=== PATIENT | female | born 1940 | race Caucasian/White ===

== ENCOUNTER 2019-10-31 01:00 | Inpatient (IN) | payer MEDICARE, SELFPAY ==
[2019-10-31] VITALS (11 sets, daily range): BP systolic 126–188; BP diastolic 69–105; PULSE 89–110; RESP 18; TEMP 36.7–37.8; O2SAT 94–96; BMI 33.2
--- NOTE | 2019-10-31 00:36 | HP.PCM_ITS ---
History of Present Illness Date of Admission: 10/31/19 Chief Complaint: mechanical fall, knee pain The patient is a 79 year old F with a past medical history of arthritis and hypertension. She was admitted as a direct admit from [facility] after she went there on 10/22/2019 with a complaint of mechanical fall and bilateral knee pain. Patient said her knee pain is gradually been getting worse to the point where she cannot ambulate well. She had fallen the day before admission and per discussion with the ED doctor at [place], she had also fallen on day of presentation. However patient denied falling on day of presentation and says she just felt too weak to get out of her chair. She states she had been scheduled to have knee surgery some years ago but this never came on. Her knee pain is gradually gotten worse. She denied any fever or chills, chest pain, shortness of breath, nausea vomiting or diarrhea. Review of symptoms otherwise negative. Imaging done in [place] showed tricompartmental osteoarthrosis worse in the left knee than right knee. Labs done also showed evidence of UTI with WBC of 13.6. Initial troponin also thought to be mildly elevated though she had no cardiac symptoms. She was started on IV ciprofloxacin and transferred to [facility] per family request as her daughter works here. Patient seen and examined on arrival to [facility]. She still complained of bilateral knee pain worse in the left knee. Review of systems otherwise negative. She has been admitted to be managed for debility due to bilateral knee pain from osteoarthritis and UTI as well as indeterminate troponins. [] Past Medical History Medical History: Medical History (Last Updated 10/31/19 @ 16:[address] Compa Jacinto MD) Arthritis M19.90 Diabetes E11.9 Hyperlipidemia E78.5 HTN (hypertension) I10 HTN (hypertension) I10 Allergies Penicillins Allergy (Verified 10/31/19 00:21) unknown Sulfa (Sulfonamide Antibiotics) Allergy (Verified 10/31/19 00:21) deathly ill sulfamethoxazole [From Bactrim] Allergy (Verified 10/31/19 00:21) deathly ill trimethoprim [From Bactrim] Allergy (Verified 10/31/19 00:21) deathly ill lisinopril Adverse Reaction (Verified 10/31/19 00:21) cough Home Medications: Ambulatory Orders Medication Instructions Recorded Atorvastatin Calcium [Lipitor] 1 tab PO DAILY 10/31/19 Cholecalciferol (VIT D3) [Vitamin 1,000 unit PO DAILY 10/31/19 D] Metformin HCl [Metformin HCl ER] 500 mg PO DAILY 10/31/19 Triamterene 75MG/Hctz 50MG 1 tab PO DAILY 10/31/19 [Maxzide] traZODone [Desyrel] 50 mg PO QHS 10/31/19 Surgical History: no surgical history Psychiatric History: No pertinent psych hx CRIMINAL JUDGE History: No pertinent CRIMINAL JUDGE history Lives: With Family Tobacco Use: Non-smoker Alcohol: None Drugs: None - *Family History Maternal History Items: No pertinent history Paternal History Items: Heart Disease Review of Systems Constitutional: Denies: Chills, Fever, Weight Change HEENT: Denies: Head Aches, Sinus Congestion, Sinus Drainage Cardiovascular: Denies: Chest Pain, Palpitations Respiratory: Denies: Cough, Shortness of Breath, Shortness of breath at rest, Sputum production Gastrointestinal: Denies: Abdominal Pain, Nausea, Vomiting Genitourinary: Denies: Dysuria Musculoskeletal: Reports: Joint Pain. Denies: Joint Tenderness Skin: Denies: Rash, Wounds Neurological: Reports: Balance problems. Denies: Focal weakness, Numbness, Tingling Psychiatric: Denies: Anxiety, Depression, Homicidal Ideations, Suicidal Ideations Hematologic/ Lymphatic: Denies: Easy Bruising, Easy Bleeding VTE Information - Inpt Only VTE Present on Admission: No VTE Pharm Prophylaxis ordered?: Yes - Physical Exam Vitals/I&O's: Weight: 187 lb 9.814 oz Body Mass Index (BMI) 33.2 General: Alert, Oriented x3, Cooperative, No apparent distress HEENT: Atraumatic, PERRLA, EOMI, Normocephalic Oral: Moist Mucosa Neck: Supple, No JVD, Negative Carotid Bruits Lungs: Clear to auscultation, Normal air movement Cardiovascular: Regular rate, Regular Rhythm, Normal S1, Normal S2, No murmurs Abdomen: Bowel Sounds Present, Soft, Non Tender, Non-Distended, No Hepato- splenomegaly Extremities: No clubbing, No cyanosis, No edema, Capillary Refill Less than 3 Seconds Skin: No rashes, No breakdown Musculoskeletal: - - bilateral knee pain with flexion and extension, and has left knee swelling with effusion, and minimal differential warmth. Lymphatic: No Cervical, Supraclavicular, or Inguinal Adenopathy Neurological: Cranial nerves II-XII grossly intact, Neuro grossly intact, Motor Exam 5/5 strength throughout Psych/Mental Status: Normal Affect, Appropriate, Alert and oriented to time, place, person, mood and affect Assessment/Plan 79 y/o admitted with a complaitn of weakness, knee pain and mechanical fall 1. Debility due to bilateral knee osteoarthritis * admit to [facility] with telemetry * XR of knees done at OSH showed bilateral osteoarthrosis, worse on the left than right * PT/OT consult * fall precautions * 2. Osteoarthritis of the knee * xray of knees as under 1. has pain with flexion and extension of knee and has a left knee effusion * PO tylenol and ibuprofen prn for pain * consult orthopedics * 3. UTI * UA done at OSH showed UTI, and also had wbc of 13 * will give IV ciprofloxacin, as she is allergic to penicillins. * urine culture * 4. indeterminate troponin * troponin at OSH was indeterminate at 0.025 and 0.022 * denies any chest pain. EKG showed no acute ST changes * will cycle tropnins. * 5. Hypertension: On Maxide 1 tab daily. 6. Type 2 diabetes mellitus: On metformin 500 mg daily. Insulin sliding scale. Accu-Cheks AC at bedtime. 6. Hyperlipidemia: On statin DVT prophylaxis: Lovenox CODE STATUS: Full code * Patient counseled extensively about different types of CODE STATUS including full code, DNR CCA and DNR CCA. Patient elects to be full code. * Total [id number] time 17 minutes. OBSV E&M: 01635 Initial observation care L3 Procedures: 61772 Advncd Care Plan 30 Min
--- NOTE | 2019-10-31 01:00 | EKG12_ITS ---
Test Reason : ADMISSION EKG Blood Pressure : / mmHG Vent. Rate : 091 BPM Atrial Rate : 091 BPM P-R Int : 130 ms QRS Dur : 088 ms QT Int : 378 ms P-R-T Axes : 076 -19 040 degrees QTc Int : 464 ms Normal sinus rhythm Normal ECG No previous ECGs available Confirmed by ATNIYA MATIAS ([id number]), editorial writer CELINE HEARD ([id number]) on 11/01/2019 11:32:01 AM Referred By: Sarah Garrison Confirmed By:TANIYA MATIAS
[2019-10-31 01:34] LABS: Hematocrit 36.8 % (37-47); Hemoglobin 11.7 g/dL (12.0-15.0); Mean Corp Hgb Conc 31.8 g/dL (32-36); Mean Corpuscular Hgb 27.9 pg (27.0-32.0); Mean Corpuscular Volume 87.8 fL (81-99); Mean Platelet Vol. 10.2 fl (6.2-12.0); Platelet Count 271 K/mm3 (150-450); RBC Distribution Width SD 41.6 fl (35.1-43.9); Red Blood Count 4.19 M/mm3 (4.2-5.4); White Blood Count 14.1 K/mm3 (4.4-11.0)
[2019-10-31 01:51] LABS: ALB/GLOB Ratio 0.5 RATIO (0.9-2.4); AST(SGOT) 9 U/L (15-37); Alanine Aminotransfer ALT/SGPT 15 U/L (13-56); Albumin, Serum 2.5 g/dL (3.2-5.0); Alkaline Phosphatase 53 U/L (45-117); Anion Gap 5 (5-15); BUN 21 mg/dL (7-18); BUN/Creat Ratio 21.5 RATIO (10-20); Calcium,Total 9.1 mg/dL (8.5-10.1); Chloride 104 mmol/L (98-107); Cholesterol 123 mg/dL (200); Creatinine, Serum 0.98 mg/dL (0.55-1.02); EST Glomerular Filtration Rate 59 mL/min (>60); Est Glom Filt Rate - Afr Amer 71 mL/min (>60); Estimated Creatinine Clearance 39.77 ml/min; Globulin 4.6 g/dL (2.2-4.2); Glucose 161 mg/dL (74-106); High Density Lipoprotein 64 mg/dL; Potassium 3.3 mmol/L (3.5-5.1); Protein, Total 7.1 g/dL (6.4-8.2); Sodium Level 137 mmol/L (136-145); Triglycerides 67 mg/dL; Very Low Density Lipoprotein 13 mg/dL (5-40)
[2019-10-31] MEDS: 0.9% Saline Lock 10 ML Syringe IV ×2 (01:52→21:18)
[2019-10-31] MEDS: Ciprofloxacin 400 MG/200 ML BAG 200 MG IV ×2 (01:52→10:42)
[2019-10-31] MEDS: oxyCODONE 5 MG Tablet 10 MG PO (03:41)
[2019-10-31 05:07] LABS: Absolute Lymphocyte Count 2.23 X10^3/uL (0.83-4.51); Absolute Neutrophil Count 9.2 X10^3/uL (2.0-7.7); Basophil# 0.03 X10^3/uL; Basophil% 0.2 % (0-1); Eosinophil# 0.04 X10^3/uL; Eosinophils% 0.3 % (0-5); Hematocrit 34.7 % (37-47); Hemoglobin 11.1 g/dL (12.0-15.0); Lymphocyte # 2.23 X10^3/ul (4.0); Lymphocyte % 17.4 % (19-41); Mean Corpuscular Hgb 28.3 pg (27.0-32.0); Mean Corpuscular Volume 88.5 fL (81-99); Mean Platelet Vol. 10.4 fl (6.2-12.0); Monocyte% 10.1 % (0-10); NRBC Flagged by Analyzer 0 % (0-5); Neutrophil # 9.21 X10^3/uL (2.7-7.7); Neutrophil % 71.7 % (47-70); Platelet Count 289 K/mm3 (150-450); RBC Distribution Width SD 41.9 fl (35.1-43.9); Red Blood Count 3.92 M/mm3 (4.2-5.4); White Blood Count 12.9 K/mm3 (4.4-11.0)
[2019-10-31 05:27] LABS: Anion Gap 4 (5-15); BUN 20 mg/dL (7-18); BUN/Creat Ratio 20.5 RATIO (10-20); Calcium,Total 8.9 mg/dL (8.5-10.1); Chloride 102 mmol/L (98-107); Creatinine, Serum 0.98 mg/dL (0.55-1.02); EST Glomerular Filtration Rate 59 mL/min (>60); Est Glom Filt Rate - Afr Amer 71 mL/min (>60); Estimated Creatinine Clearance 39.77 ml/min; Glucose 140 mg/dL (74-106); Potassium 3.3 mmol/L (3.5-5.1); Sodium Level 134 mmol/L (136-145)
[2019-10-31 06:46] LABS: Bedside Glucose 120 mg/dL (70-110)
[2019-10-31] MEDS: Triamterene 75MG/Hctz 50MG Tablet 1 TABLET PO (07:53)
[2019-10-31] MEDS: Menthol/Lanolin/Calamine/Znox 113 GM Tube 1 APPLIC TOPICAL ×2 (08:45→21:20)
[2019-10-31] MEDS: metFORMIN (XR) 500 MG Tablet PO (08:45)
[2019-10-31] MEDS: Nystatin Powder 15gm Bottle 1 APPLIC TOPICAL ×2 (08:46→21:20)
--- NOTE | 2019-10-31 08:58 | NURSING ---
daughter (donald ext. 2025) updated on pt-she states she prefers whom she is established with prior
[2019-10-31 10:01] LABS: Magnesium 1.7 mg/dL (1.6-2.6)
--- NOTE | 2019-10-31 10:37 | ECHOD_ITS ---
Reason For Study: Abnormal Troponin Procedure This was a 2D Doppler, Color Flow transthoracic echocardiogram. The study was technically difficult. Exam performed portable in patient room. Left Ventricle Mildly dilated left ventricle. The estimated ejection fraction is 55-60 %. Stage 1 diastolic dysfunction. No regional wall motion abnormalities noted. Right Ventricle Normal size and thickness. Normal systolic function. Atria Normal left atrium. Normal right atrium. Normal atrial septum. Mitral Valve The mitral valve is structurally normal. No prolapse or stenosis seen. Trivial mitral valve insufficiency. Tricuspid Valve Normal tricuspid valve. Unable to estimate RV systolic pressure due to insufficient tricuspid regurgitant envelope. Aortic Valve Normal aortic valve. Trisinus/trileaflet aortic valve. Pulmonic Valve The pulmonic valve is not well visualized. Great Vessels Normal aortic root. Normal arch. Normal inferior vena cava. Inferior vena cava collapse with sniff. Pericardium/Pleural No pericardial effusion. MMode/2D Measurements & Calculations LVIDd: 5.1 cm IVSd: 0.98 cm LA dimension: 4.3 cm LVIDs: 3.9 cm LVPWd: 0.97 cm RVDd: 3.4 cm FS: 23.9 % LAV(MOD-bp): 59.7 ml LA A4 area: 19.7 cm2 RA A4 area: 16.3 cm2 LAV(MOD-bp) Indexed: 31.8 ml/m2 LAV(MOD-sp2): 65.9 ml LAV(MOD-sp4): 51.5 ml Time Measurements MV dec time: 0.21 sec Doppler Measurements & Calculations MV E max jewel: 78.7 cm/sec Lat Peak E' Jewel: 10.9 cm/sec Med Peak E' Jewel: 7.0 cm/sec MV A max jewel: 116.5 cm/sec E/E' lat: 7.2 E/E' med: 11.2 MV E/A: 0.68 MV V2 max: 124.3 cm/sec MV P1/2t max jewel: 104.1 cm/sec Ao V2 max: 173.3 cm/sec MV max P.2 mmHg MV P1/2t: 69.7 msec Ao max P.0 mmHg MV V2 mean: 72.8 cm/sec MV dec slope: 437.8 cm/sec2 Ao V2 mean: 122.6 cm/sec MV mean P.5 mmHg MVA(P1/2t): 3.2 cm2 Ao mean P.7 mmHg MV V2 VTI: 23.5 cm Ao V2 VTI: 35.3 cm LV V1 max: 123.4 cm/sec PA V2 max: 74.0 cm/sec LV V1 max P.1 mmHg LV V1 mean P.1 mmHg LV V1 mean: 81.8 cm/sec LV V1 VTI: 25.0 cm Interpretation Summary Mildly dilated left ventricle. The estimated ejection fraction is 55-60 %. Stage 1 diastolic dysfunction. Trivial mitral valve insufficiency. Unable to estimate RV systolic pressure due to insufficient tricuspid regurgitant envelope. The study was technically difficult. There is no comparison study available. Ordering Physician: Philip Lei Referring Physician: Sarah Garrison Performed By: Garrett Medina RCS
--- NOTE | 2019-10-31 11:07 | PN_ITS ---
<Philip Lei - Last Filed: 10/31/19 11:07> Reason for Visit: UTI and fall with knee pain Subjective: Ongoing BL knee pain. No fever/chills. No abd pain. Tolerating lehman without discomfort. No LH/dizzines. No CP/palp/pressure/tightness/SOB. Vitals/I&O's: Vital Signs Temp Pulse Resp BP Pulse Ox 98.4 F 102 H 18 126/69 H 95 10/31/19 09:16 10/31/19 09:16 10/31/19 09:16 10/31/19 09:16 10/31/19 09:16 Oxygen Delivery Method Room Air Weight: 187 lb 9.814 oz Body Mass Index (BMI) 33.2 Intake and Output for Last 24 Hours 10/29/19 10/30/19 10/31/19 23:59 23:59 23:59 Intake Total 211.5 / 211.5 Output Total 200 / 200 Balance 11.5 / 11.5 General: Alert, Oriented x3, Cooperative HEENT: Atraumatic, PERRLA, EOMI, Normocephalic Neck: Supple, No JVD, Negative Carotid Bruits Lungs: Clear to auscultation, Normal air movement Cardiovascular: Regular rate, No murmurs Abdomen: Bowel Sounds Present, Soft, Non Tender Extremities: No edema, Capillary Refill Less than 3 Seconds Skin: No rashes, No breakdown Musculoskeletal: No Tenderness to Palpation of Joints or Extremities Neurological: Cranial nerves II-XII grossly intact Psych/Mental Status: Normal Affect, Appropriate, Alert and oriented to time, pl rene, person, mood and affect Laboratory Results 10/31/19 01:25: WBC 14.1 H, RBC 4.19 L, Hgb 11.7 L, Hct 36.8 L, MCV 87.8, MCH 27.9, MCHC 31.8 L, RDW Std Deviation 41.6, RDW Coeff of Ahsan 13.0, Plt Count 271, MPV 10.2 10/31/19 01:25: Sodium 137, Potassium 3.3 L, Chloride 104, Carbon Dioxide 28.0, Anion Gap 5, BUN 21 H, Creatinine 0.98, Estim Creat Clear Calc 39.77, Est GFR (MDRD) Af Amer 71, Est GFR (MDRD) Non-Af 59 L, BUN/Creatinine Ratio 21.5 H, Glucose 161 H, Calcium 9.1, Total Bilirubin 1.40 H, AST 9 L, ALT 15, Alkaline Phosphatase 53, Total Protein 7.1, Albumin 2.5 L, Globulin 4.6 H, Albumin/Globulin Ratio 0.5 L, Triglycerides 67, Cholesterol 123, LDL Cholesterol 46, VLDL Cholesterol 13, HDL Cholesterol 64 10/31/19 01:25: Troponin I < 0.015 10/31/19 04:50: WBC 12.9 H, RBC 3.92 L, Hgb 11.1 L, Hct 34.7 L, MCV 88.5, MCH 28.3, MCHC 32.0, RDW Std Deviation 41.9, RDW Coeff of Ahsan 13.0, Plt Count 289, MPV 10.4, Immature Gran % (Auto) 0.300, Neut % (Auto) 71.7 H, Lymph % (Auto) 17.4 L, [place] % (Auto) 10.1 H, Eos % (Auto) 0.3, Baso % (Auto) 0.2, Absolute Neuts (auto) 9.2 H, Absolute Lymphs (auto) 2.23, Nucleated RBC % 0 10/31/19 04:50: Sodium 134 L, Potassium 3.3 L, Chloride 102, Carbon Dioxide 28.0, Anion Gap 4 L, BUN 20 H, Creatinine 0.98, Estim Creat Clear Calc 39.77, Est GFR (MDRD) Af Amer 71, Est GFR (MDRD) Non-Af 59 L, BUN/Creatinine Ratio 20.5 H, Glucose 140 H, Calcium 8.9, Troponin I < 0.015 10/31/19 06:42: POC Glucose 120 H 10/31/19 07:40: Troponin I < 0.015 10/31/19 07:40: Magnesium 1.7 Current Medications Acetaminophen (Tylenol) 650 mg PO Q6H PRN PRN PRN Reason: Pain Score 1-10/Temp > 100.7 F Atorvastatin Calcium (Lipitor) 40 mg PO DAILY@2200 [facility] Calamine/Phenol (Calmoseptine Ointment) 1 applic TOPICAL BID [facility]; Protocol Last Admin: 10/31/19 08:45 Dose: 1 applicatio Documented by: Cholecalciferol (Vitamin D (25mcg)) 1,000 unit PO DAILY [facility] Last Admin: 10/31/19 10:45 Dose: 1,000 unit Documented by: Dextrose (D50w Syringe) 0 gm IV X1 PRN; Protocol PRN Reason: Hypoglycemia Glucagon () 1 mg IM .X1 PRN PRN Reason: Hypoglycemia Hydralazine HCl (Apresoline Iv) 10 mg IV Q6H PRN PRN PRN Reason: sbp >160/110 Sodium Chloride () 250 mls @ 15 mls/hr IV .[id number] PRN PRN Reason: Saline Flush Last Infusion: 10/31/19 03:38 Dose: 0 mls/hr Documented by: Sodium Chloride () 250 mls @ 15 mls/hr IV .[id number] PRN PRN Reason: Additional IVPB Infusion Ciprofloxacin (Cipro) 400 mg in 200 mls @ 200 mls/hr IV Q12 [facility] Last Admin: 10/31/19 10:42 Dose: 200 mls/hr Documented by: Ibuprofen (Motrin) 400 mg PO Q4H PRN PRN PRN Reason: Pain Score 1-10/Temp > 100.7 F Insulin Human Lispro (Humalog Kwikpen (Bkc)) 0 unit SC ACHS [facility]; Protocol Last Admin: 10/31/19 06:43 Dose: Not Given Documented by: Metformin [facility]) [facility] Last Admin: 10/31/19 08:45 Dose: 500 mg Documented by: Nitroglycerin (Nitrostat) 0.4 mg SUBLINGUAL Q5M PRN PRN Reason: CARDIAC/CHEST PAIN Nystatin (Mycostatin Powder) 1 applic TOPICAL BID [facility]; Protocol Last Admin: 10/31/19 08:46 Dose: 1 applicatio Documented by: Ondansetron HCl (Zofran) 4 mg IV Q8H PRN PRN PRN Reason: NAUSEA/VOMITING Oxycodone HCl (Oxyir) 10 mg PO Q4H PRN PRN PRN Reason: Pain Score 4-10/10 Last Admin: 10/31/19 03:41 Dose: 10 mg Documented by: Sodium Chloride () 10 - 40 ml IV UD PRN PRN Reason: SALINE FLUSH Last Admin: 10/31/19 01:52 Dose: 10 ml Documented by: Trazodone HCl (Desyrel) 50 mg PO QHS [facility] Triamterene/HCTZ (Maxzide) 1 tablet PO DAILY [facility] Last Admin: 10/31/19 07:53 Dose: 1 tablet Documented by: STROKE Vital Signs/Narrative: Vital Signs Temp Pulse Resp BP Pulse Ox 10/31/19 09:16 98.4 F 102 H 18 126/69 H 95 10/31/19 09:05 102 H 95 Medical Necessity - Tobacco Use Smoking Status: Never smoker Tobacco Use: Non-smoker Assessment/Plan 1. Acute UTI - leukocytosis, no fever. remove lehman and perform voiding trial. received cipro, change to rocephin. await cx. 2. Indeterminate trop - reported per lodi. negative here x 2. No CP. Negative EKG. obtain echo. 3. Fall, knee pain, debility - ortho consulted. xrays without acute fracture - osteoarthrosis. Obtain PTOT evals. 4. DMt2 - metformin, SSI 5. Continue home meds, prn hydralazine DVT ppx: lovenox DC planning: falls, knee pain, PTOT evals This patient was seen by Philip Lei PA-C under the supervision of Dr. Artis <Brina Artis E - Last Filed: 10/31/19 12:13> Vitals/I&O's: Vital Signs Temp Pulse Resp BP Pulse Ox 98.4 F 102 H 18 126/69 H 95 10/31/19 09:16 10/31/19 09:16 10/31/19 09:16 10/31/19 09:16 10/31/19 09:16 Oxygen Delivery Method Room Air Weight: 187 lb 9.814 oz Body Mass Index (BMI) 33.2 Intake and Output for Last 24 Hours 10/29/19 10/30/19 10/31/19 23:59 23:59 23:59 Intake Total 211.5 / 211.5 Output Total 200 / 200 Balance 11.5 / 11.5 Laboratory Results 10/31/19 01:25: WBC 14.1 H, RBC 4.19 L, Hgb 11.7 L, Hct 36.8 L, MCV 87.8, MCH 27.9, MCHC 31.8 L, RDW Std Deviation 41.6, RDW Coeff of Ahsan 13.0, Plt Count 271, MPV 10.2 10/31/19 01:25: Sodium 137, Potassium 3.3 L, Chloride 104, Carbon Dioxide 28.0, Anion Gap 5, BUN 21 H, Creatinine 0.98, Estim Creat Clear Calc 39.77, Est GFR (MDRD) Af Amer 71, Est GFR (MDRD) Non-Af 59 L, BUN/Creatinine Ratio 21.5 H, Glucose 161 H, Calcium 9.1, Total Bilirubin 1.40 H, AST 9 L, ALT 15, Alkaline Phosphatase 53, Total Protein 7.1, Albumin 2.5 L, Globulin 4.6 H, Albumin/Globulin Ratio 0.5 L, Triglycerides 67, Cholesterol 123, LDL Cholesterol 46, VLDL Cholesterol 13, HDL Cholesterol 64 10/31/19 01:25: Troponin I < 0.015 10/31/19 04:50: WBC 12.9 H, RBC 3.92 L, Hgb 11.1 L, Hct 34.7 L, MCV 88.5, MCH 28.3, MCHC 32.0, RDW Std Deviation 41.9, RDW Coeff of Ahsan 13.0, Plt Count 289, MPV 10.4, Immature Gran % (Auto) 0.300, Neut % (Auto) 71.7 H, Lymph % (Auto) 17.4 L, [place] % (Auto) 10.1 H, Eos % (Auto) 0.3, Baso % (Auto) 0.2, Absolute Neuts (auto) 9.2 H, Absolute Lymphs (auto) 2.23, Nucleated RBC % 0 10/31/19 04:50: Sodium 134 L, Potassium 3.3 L, Chloride 102, Carbon Dioxide 28.0, Anion Gap 4 L, BUN 20 H, Creatinine 0.98, Estim Creat Clear Calc 39.77, Est GFR (MDRD) Af Amer 71, Est GFR (MDRD) Non-Af 59 L, BUN/Creatinine Ratio 20.5 H, Glucose 140 H, Calcium 8.9, Troponin I < 0.015 10/31/19 06:42: POC Glucose 120 H 10/31/19 07:40: Troponin I < 0.015 10/31/19 07:40: Magnesium 1.7 10/31/19 11:56: POC Glucose 208 H Current Medications Acetaminophen (Tylenol) 650 mg PO Q6H PRN PRN PRN Reason: Pain Score 1-10/Temp > 100.7 F Atorvastatin Calcium (Lipitor) 40 mg PO DAILY@2200 [facility] Calamine/Phenol (Calmoseptine Ointment) 1 applic TOPICAL BID [facility]; Protocol Last Admin: 10/31/19 08:45 Dose: 1 applicatio Documented by: Cholecalciferol (Vitamin D (25mcg)) 1,000 unit PO DAILY [facility] Last Admin: 10/31/19 10:45 Dose: 1,000 unit Documented by: Dextrose (D50w Syringe) 0 gm IV X1 PRN; Protocol PRN Reason: Hypoglycemia Enoxaparin Sodium (Lovenox) 40 mg SC DAILY [facility] Glucagon () 1 mg IM .X1 PRN PRN Reason: Hypoglycemia Hydralazine HCl (Apresoline Iv) 10 mg IV Q6H PRN PRN PRN Reason: sbp >160/110 Sodium Chloride () 250 mls @ 15 mls/hr IV .[id number] PRN PRN Reason: Saline Flush Last Infusion: 10/31/19 03:38 Dose: 0 mls/hr Documented by: Sodium Chloride () 250 mls @ 15 mls/hr IV .[id number] PRN PRN Reason: Additional IVPB Infusion Ceftriaxone Sodium (Rocephin) 1 gm in 50 mls @ 100 mls/hr IV DAILY@2200 [facility] Ibuprofen (Motrin) 400 mg PO Q4H PRN PRN PRN Reason: Pain Score 1-10/Temp > 100.7 F Insulin Human Lispro (Humalog Kwikpen (Bkc)) 0 unit SC ACHS [facility]; Protocol Last Admin: 10/31/19 12:04 Dose: 4 u Documented by: Metformin [facility] ([facility] Xr) [facility] Last Admin: 10/31/19 08:45 Dose: 500 mg Documented by: Nitroglycerin (Nitrostat) 0.4 mg SUBLINGUAL Q5M PRN PRN Reason: CARDIAC/CHEST PAIN Nystatin (Mycostatin Powder) 1 applic TOPICAL BID [facility]; Protocol Last Admin: 10/31/19 08:46 Dose: 1 applicatio Documented by: Ondansetron HCl (Zofran) 4 mg IV Q8H PRN PRN PRN Reason: NAUSEA/VOMITING Oxycodone HCl (Oxyir) 5 mg PO Q4H PRN PRN PRN Reason: Pain Score 6-10/10 Last Admin: 10/31/19 12:03 Dose: 5 mg Documented by: Sodium Chloride () 10 - 40 ml IV UD PRN PRN Reason: SALINE FLUSH Last Admin: 10/31/19 01:52 Dose: 10 ml Documented by: Trazodone HCl (Desyrel) 50 mg PO QHS [facility] Triamterene/HCTZ (Maxzide) 1 tablet PO DAILY [facility] Last Admin: 10/31/19 07:53 Dose: 1 tablet Documented by: STROKE Vital Signs/Narrative: Vital Signs Temp Pulse Resp BP Pulse Ox 10/31/19 09:16 98.4 F 102 H 18 126/69 H 95 10/31/19 09:05 102 H 95 Assessment/Plan Hospitalist note: I am seeing this patient in conjunction with Philip Lei. I independently seen and examined the patient. Progress note above, laboratory data and imaging studies reviewed and I concur with above treatment plan. Today, patient complains of bilateral ankle pain. Upon standing up, she complains of bilateral knee pain. She lives with her who is using walker at home and he cannot take care of her. She has been having difficulty ambulating. She denied chest pain or shortness of breath. Her vital signs are stable. - Physical Exam General: Alert, Oriented x3, Cooperative, No apparent distress. HEENT: Atraumatic, PERRLA, EOMI. Neck: Supple, No JVD, Negative Carotid Bruits, Trachea Midline, Thyroid Normal. Lungs: Diminished breath sounds bilateral, otherwise clear, No rhonchi, No wheeze, No rales. Cardiovascular: Regular rate, Regular Rhythm, Normal S1, Normal S2, PMI Normal. Abdomen: Bowel Sounds Present, Soft, Non Tender, Non-Distended, No Hepato- splenomegaly, obese. Extremities: No clubbing, No cyanosis, No edema Skin: No rashes, No breakdown Neurological: Cranial nerves are intact, neuro grossly intact Vital Signs are stable. Assessment and plan: #1 intractable bilateral knee pain/debility/difficulty ambulating: Secondary to advanced bilateral knee osteoarthritis. X-ray reviewed, no acute fractures. She is on OxyIR and ibuprofen PRN for pain. Orthopedic surgery consulted, plan for PT OT evaluation and treatment, patient will need placement to fpc facility. #2 acute cystitis: She is on IV Rocephin, urine cultures pending. She has been afebrile, WBC is trending down. #3 indeterminate troponin: This was done at [facility]. Patient denied any chest pain. EKG reviewed, unremarkable. She had troponin done here 3 times and was negative. Plan for 2D echocardiogram. #4 other chronic medical problems: Stable, continue current medications as above. This note was generated with [employer] system dictation software. It may contain incorrect words, spelling, and punctuation that were not noted in checking the note before signing.
--- NOTE | 2019-10-31 12:02 | CASEMGMT ---
Physician let CARINA know that patient's daughter was asking about usp placement for patient. SW went to patient's room and her daughter was also present. Discussed possible d/c plan of SNF. Patient was agreeable if that is what is needed. She deferred to her daughter to make decisions. Patient's daughter, Ashleigh said she would prefer TCU and if not TCU then [facility]'s TCU. CARINA explained CARINA will work on this referral and we would go from there. CARINA called Julieth in TCU with referral and she would have a bed on Tuesday. Patient will need insurance authorization so she will likely be in hospital until then. Await PT/OT notes. Plan: [facility] TCU pending insurance approval. Ivon RAMIREZ MSW
[2019-10-31] MEDS: oxyCODONE 5 MG Tablet PO (12:03)
[2019-10-31] MEDS: Insulin Lispro 100 UNIT/ML INSULN.PEN SC ×3 (12:04→21:20)
[2019-10-31 12:06] LABS: Bedside Glucose 208 mg/dL (70-110)
[2019-10-31 13:20] LABS: Phosphorus 3.4 mg/dL (2.5-4.9)
--- NOTE | 2019-10-31 16:18 | PCM.CONS.GEN ---
Reason for Consult Date of Consultation: 10/31/19 Reason for Consultation: bilateral knee pain. requested by dr benitez History of Present Illness: The patient is a 79 year old F history of hyperlipidemia, hypertension and diabetes presents today with bilateral knee pain. Patient notes she is had knee pain in the past and is received corticosteroid injections which were useful. Patient notes progressive decline in activities of daily living. She is having difficult more more difficulty ambulating. She is had recent falls. No recent fractures. She was seen in an outside hospital emergency department last evening. Noted to have a UTI with elevated white blood cell count. Started on ceftriaxone. She reports 10 out of 10 pain in the right knee 9-10 pain in the left knee. Pain in the right knee is on the lateral side pain in the left knee is on the medial side. She has pain with range of motion. pain is worse with weightbearing, relieved with rest. Associated with effusion. No erythema or excessive increase in warmth. Past Medical History Medical History: Medical History (Last Updated 10/31/19 @ 16:[address] Compa Jacinto MD) Arthritis M19.90 Diabetes E11.9 Hyperlipidemia E78.5 HTN (hypertension) I10 HTN (hypertension) I10 Allergies Penicillins Allergy (Verified 10/31/19 00:21) unknown Sulfa (Sulfonamide Antibiotics) Allergy (Verified 10/31/19 00:21) deathly ill sulfamethoxazole [From Bactrim] Allergy (Verified 10/31/19 00:21) deathly ill trimethoprim [From Bactrim] Allergy (Verified 10/31/19 00:21) deathly ill lisinopril Adverse Reaction (Verified 10/31/19 00:21) cough Home Medications: Ambulatory Orders Medication Instructions Recorded Atorvastatin Calcium [Lipitor] 1 tab PO DAILY 10/31/19 Cholecalciferol (VIT D3) [Vitamin 1,000 unit PO DAILY 10/31/19 D] Metformin HCl [Metformin HCl ER] 500 mg PO DAILY 10/31/19 Triamterene 75MG/Hctz 50MG 1 tab PO DAILY 10/31/19 [Maxzide] traZODone [Desyrel] 50 mg PO QHS 10/31/19 Surgical History: no surgical history Psychiatric History: No pertinent psych hx 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 Lives: With Family Smoking Status: Never smoker Tobacco Use: Non-smoker Alcohol: None Drugs: None - *Family History Maternal History Items: No pertinent history Paternal History Items: Heart Disease Review of Systems Constitutional: Denies: Chills, Fever, Weight Change HEENT: Denies: Head Aches, Sinus Congestion, Sinus Drainage Cardiovascular: Denies: Chest Pain, Palpitations Respiratory: Denies: Cough, Shortness of breath at rest, Sputum production Gastrointestinal: Denies: Abdominal Pain, Nausea, Vomiting Genitourinary: Reports: Dysuria Musculoskeletal: Reports: Joint Pain, Joint Tenderness Skin: Denies: Rash, Wounds Neurological: Denies: Numbness, Tingling, Focal weakness Psychiatric: Denies: Anxiety, Depression, Homicidal Ideations, Suicidal Ideations Hematologic/ Lymphatic: Denies: Easy Bruising, Easy Bleeding Objective: Bilateral hip x-rays and bilateral knee x-rays reviewed. This shows severe valgus knee arthritis on the right with complete joint space narrowing subchondral sclerosis and osteophyte formation as well as bony erosions. Worse in the lateral compartment. Left knee shows varus knee arthritis with medial compartment joint space narrowing subchondral sclerosis, bony erosions and associated osteophyte formation. Hip x-rays show bilateral arthrosis moderate in nature. - Physical Exam Vitals/I&O's: Vital Signs Temp Pulse Resp BP Pulse Ox 98.4 F 102 H 18 126/69 H 95 10/31/19 09:16 10/31/19 09:16 10/31/19 09:16 10/31/19 09:16 10/31/19 09:16 Oxygen Delivery Method Room Air Weight: 187 lb 9.814 oz Body Mass Index (BMI) 33.2 Intake and Output for Last 24 Hours 10/29/19 10/30/19 10/31/19 23:59 23:59 23:59 Intake Total 411.5 / 411.5 Output Total 200 / 200 Balance 211.5 / 211.5 General: Alert, Oriented x3, Cooperative HEENT: Atraumatic Neck: No JVD Lungs: - - Nonlabored breathing Cardiovascular: - - Regular pulse rate Abdomen: Non-Distended - Obese Extremities: - - Right lower extremity: Valgus alignment. Moderate to large effusion. Pain with range of motion. Crepitus with range of motion. Alignment is not correctable. Stable to varus and valgus stress. Range of motion is 15-95. Neurovascular intact distally. Left knee: Varus alignment. Tenderness palpation over the medial joint line. Moderate to large effusion. Crepitus with range of motion. Tolerates short arc range of motion. Stable to varus and valgus stress. Non-correctable varus alignment. Neurovascular intact distally. Range of motion 10-100. Laboratory Results 10/31/19 01:25: WBC 14.1 H, RBC 4.19 L, Hgb 11.7 L, Hct 36.8 L, MCV 87.8, MCH 27.9, MCHC 31.8 L, RDW Std Deviation 41.6, RDW Coeff of Ahsan 13.0, Plt Count 271, MPV 10.2 10/31/19 01:25: Sodium 137, Potassium 3.3 L, Chloride 104, Carbon Dioxide 28.0, Anion Gap 5, BUN 21 H, Creatinine 0.98, Estim Creat Clear Calc 39.77, Est GFR (MDRD) Af Amer 71, Est GFR (MDRD) Non-Af 59 L, BUN/Creatinine Ratio 21.5 H, Glucose 161 H, Calcium 9.1, Total Bilirubin 1.40 H, AST 9 L, ALT 15, Alkaline Phosphatase 53, Total Protein 7.1, Albumin 2.5 L, Globulin 4.6 H, Albumin/Globulin Ratio 0.5 L, Triglycerides 67, Cholesterol 123, LDL Cholesterol 46, VLDL Cholesterol 13, HDL Cholesterol 64 10/31/19 01:25: Troponin I < 0.015 10/31/19 04:50: WBC 12.9 H, RBC 3.92 L, Hgb 11.1 L, Hct 34.7 L, MCV 88.5, MCH 28.3, MCHC 32.0, RDW Std Deviation 41.9, RDW Coeff of Ahsan 13.0, Plt Count 289, MPV 10.4, Immature Gran % (Auto) 0.300, Neut % (Auto) 71.7 H, Lymph % (Auto) 17.4 L, [place] % (Auto) 10.1 H, Eos % (Auto) 0.3, Baso % (Auto) 0.2, Absolute Neuts (auto) 9.2 H, Absolute Lymphs (auto) 2.23, Nucleated RBC % 0 10/31/19 04:50: Sodium 134 L, Potassium 3.3 L, Chloride 102, Carbon Dioxide 28.0, Anion Gap 4 L, BUN 20 H, Creatinine 0.98, Estim Creat Clear Calc 39.77, Est GFR (MDRD) Af Amer 71, Est GFR (MDRD) Non-Af 59 L, BUN/Creatinine Ratio 20.5 H, Glucose 140 H, Calcium 8.9, Troponin I < 0.015 10/31/19 06:42: POC Glucose 120 H 10/31/19 07:40: Troponin I < 0.015 10/31/19 07:40: Magnesium 1.7 10/31/19 07:40: Phosphorus 3.4 10/31/19 11:56: POC Glucose 208 H Current Medications Acetaminophen (Tylenol) 650 mg PO Q6H PRN PRN PRN Reason: Pain Score 1-10/Temp > 100.7 F Atorvastatin Calcium (Lipitor) 40 mg PO DAILY@2200 [facility] Calamine/Phenol (Calmoseptine Ointment) 1 applic TOPICAL BID [facility]; Protocol Last Admin: 10/31/19 08:45 Dose: 1 applicatio Documented by: Cholecalciferol (Vitamin D (25mcg)) 1,000 unit PO DAILY [facility] Last Admin: 10/31/19 10:45 Dose: 1,000 unit Documented by: Dextrose (D50w Syringe) 0 gm IV X1 PRN; Protocol PRN Reason: Hypoglycemia Enoxaparin Sodium (Lovenox) 40 mg SC DAILY [facility] Glucagon () 1 mg IM .X1 PRN PRN Reason: Hypoglycemia Hydralazine HCl (Apresoline Iv) 10 mg IV Q6H PRN PRN PRN Reason: sbp >160/110 Sodium Chloride () 250 mls @ 15 mls/hr IV .[id number] PRN PRN Reason: Saline Flush Last Infusion: 10/31/19 03:38 Dose: 0 mls/hr Documented by: Sodium Chloride () 250 mls @ 15 mls/hr IV .[id number] PRN PRN Reason: Additional IVPB Infusion Ceftriaxone Sodium (Rocephin) 1 gm in 50 mls @ 100 mls/hr IV DAILY@2200 [facility] Ibuprofen (Motrin) 400 mg PO Q4H PRN PRN PRN Reason: Pain Score 1-10/Temp > 100.7 F Insulin Human Lispro (Humalog Kwikpen (Bkc)) 0 unit SC ACHS [facility]; Protocol Last Admin: 10/31/19 12:04 Dose: 4 u Documented by: Metformin HCl (Glucophage Xr) 500 mg PO DAILYCM [facility] Last Admin: 10/31/19 08:45 Dose: 500 mg Documented by: Nitroglycerin (Nitrostat) 0.4 mg SUBLINGUAL Q5M PRN PRN Reason: CARDIAC/CHEST PAIN Nystatin (Mycostatin Powder) 1 applic TOPICAL BID [facility]; Protocol Last Admin: 10/31/19 08:46 Dose: 1 applicatio Documented by: Ondansetron HCl (Zofran) 4 mg IV Q8H PRN PRN PRN Reason: NAUSEA/VOMITING Oxycodone HCl (Oxyir) 5 mg PO Q4H PRN PRN PRN Reason: Pain Score 6-10/10 Last Admin: 10/31/19 12:03 Dose: 5 mg Documented by: Potassium Chloride (K-Dur) 40 meq PO X1 ONE Stop: 10/31/19 20:01 Sodium Chloride () 10 - 40 ml IV UD PRN PRN Reason: SALINE FLUSH Last Admin: 10/31/19 01:52 Dose: 10 ml Documented by: Trazodone HCl (Desyrel) 50 mg PO QHS [facility] Triamterene/HCTZ (Maxzide) 1 tablet PO DAILY [facility] Last Admin: 10/31/19 07:53 Dose: 1 tablet Documented by: Assessment/Plan Bilateral severe knee osteoarthritis. Valgus alignment on the right, varus alignment on the left. Natural history of the disease process and treatment options were discussed the patient. We outline treatment options such as nonsteroidal anti-inflammatories, Tylenol, corticosteroid injections, oral steroids, Visco supplementation and even total knee replacement. At this time patient has an active UTI did not recommend any injections in the knee due to risks of infection. She is also not a surgical candidate with an active infection. Considering her progressive limitations of mobility I did recommend that we start some physical therapy. I think she would benefit from a Tylenol regimen. Bracing is unlikely to help. Therapy will be beneficial in helping maintain range of motion and regain strength. Patient will need significant strength in order to proceed with any surgical intervention if necessary. She did mention that she takes a pain pill of her which helps with the some of the pain. I advised against this unless it is prescribed for her. If her health continues to preclude surgical intervention pain management may be an option. Recommendations for today will be physical therapy to help with mobility and the Tylenol regimen. Management of pain per primary service. NSAIDs if appropriate however with age and accommodating side effects may not be appropriate. If medically appropriate a stepdown regimen of corticosteroids may also be helpful patient should follow-up in the office 1 week after discharge noted to evaluate current UTI and explore further treatment options such as injections in the office. Call orthopedics for any further questions [facility] Office:
[2019-10-31] MEDS: Magnesium Oxide 400 MG Tablet 800 MG PO (17:33)
[2019-10-31 17:36] LABS: Bedside Glucose 164 mg/dL (70-110)
[2019-10-31] MEDS: traZODone 50 MG Tablet PO (21:18)
[2019-10-31] MEDS: Atorvastatin Calcium 40 MG Tablet PO (21:18)
[2019-10-31] MEDS: Ceftriaxone 1 GM/50 ML BAG IV (21:18)
[2019-10-31] MEDS: Acetaminophen 325 MG Tablet 650 MG PO (21:19)
[2019-10-31] MEDS: hydrALAZINE 20 MG/ML Vial 10 MG IV (21:19)
[2019-10-31 21:41] LABS: Bedside Glucose 164 mg/dL (70-110)
[2019-11-01] VITALS (11 sets, daily range): BP systolic 135–161; BP diastolic 75–82; PULSE 89–108; RESP 16–18; TEMP 36.3–36.9; O2SAT 92–96
[2019-11-01 06:18] LABS: Absolute Lymphocyte Count 2.11 X10^3/uL (0.83-4.51); Absolute Neutrophil Count 8.8 X10^3/uL (2.0-7.7); Basophil# 0.04 X10^3/uL; Basophil% 0.3 % (0-1); Eosinophil# 0.06 X10^3/uL; Eosinophils% 0.5 % (0-5); Hematocrit 35.4 % (37-47); Hemoglobin 11.2 g/dL (12.0-15.0); Lymphocyte # 2.11 X10^3/ul (4.0); Lymphocyte % 17.2 % (19-41); Mean Corp Hgb Conc 31.6 g/dL (32-36); Mean Corpuscular Hgb 28.2 pg (27.0-32.0); Mean Corpuscular Volume 89.2 fL (81-99); Mean Platelet Vol. 10.6 fl (6.2-12.0); Monocyte# 1.21 X10^3/uL; Monocyte% 9.8 % (0-10); NRBC Flagged by Analyzer 0 % (0-5); Neutrophil # 8.83 X10^3/uL (2.7-7.7); Neutrophil % 71.8 % (47-70); Platelet Count 258 K/mm3 (150-450); RBC Distribution Width CV 13.4 % (11.6-14.6); RBC Distribution Width SD 43.8 fl (35.1-43.9); Red Blood Count 3.97 M/mm3 (4.2-5.4); White Blood Count 12.3 K/mm3 (4.4-11.0)
[2019-11-01] MEDS: Acetaminophen 325 MG Tablet 650 MG PO (06:27)
[2019-11-01] MEDS: oxyCODONE 5 MG Tablet PO ×2 (06:27→11:00)
[2019-11-01 06:32] LABS: Anion Gap 5 (5-15); BUN 22 mg/dL (7-18); Calcium,Total 9.5 mg/dL (8.5-10.1); Chloride 101 mmol/L (98-107); Creatinine, Serum 1.05 mg/dL (0.55-1.02); EST Glomerular Filtration Rate 54 mL/min (>60); Est Glom Filt Rate - Afr Amer 65 mL/min (>60); Estimated Creatinine Clearance 37.12 ml/min; Glucose 143 mg/dL (74-106); Sodium Level 132 mmol/L (136-145)
[2019-11-01] MEDS: Insulin Lispro 100 UNIT/ML INSULN.PEN SC ×2 (06:32→11:07)
[2019-11-01 06:40] LABS: Bedside Glucose 157 mg/dL (70-110)
[2019-11-01] MEDS: metFORMIN (XR) 500 MG Tablet PO (09:02)
[2019-11-01] MEDS: Menthol/Lanolin/Calamine/Znox 113 GM Tube 1 APPLIC TOPICAL ×2 (09:02→21:49)
[2019-11-01] MEDS: Triamterene 75MG/Hctz 50MG Tablet 1 TABLET PO (09:03)
[2019-11-01] MEDS: Nystatin Powder 15gm Bottle 1 APPLIC TOPICAL ×2 (09:03→21:49)
[2019-11-01] MEDS: Enoxaparin 40 MG/0.4 ML Syringe SC (09:03)
--- NOTE | 2019-11-01 10:13 | CASEMGMT ---
Addendum entered by Ivon Espinosa 11/01/19 13:01: CARINA spoke with patient's daughter and let her know TCU will have a bed for patient tomorrow. She asked if she would be able to visit patient. CARINA told her when patient gets there she will be in quarantine for 14 days and will not be allowed to have visitors. CARINA told her after that they are scheduling outside visits. She said patient will be unhappy with this so she would like to be the one to let her know. Plan: [facility] TCU pending insurance. Ivon VALDEZ Addendum entered by Ivon Espinosa 11/01/19 10:14: CARINA also called patient's daughter and left her a voice mail to call CARINA back regarding d/c planning. Ivon VALDEZ Original Note: CARINA faxed all necessary information to [employer] to obtain consent to proceed with request for pre-cert. Await return call. Ivon VALDEZ
[2019-11-01] MEDS: Ibuprofen 400 MG Tablet PO (11:01)
[2019-11-01 11:20] LABS: Bedside Glucose 160 mg/dL (70-110)
--- NOTE | 2019-11-01 14:24 | CASEMGMT ---
CARINA received a call from Izabella at [facility] and she agrees with SNF level of care for patient. She also mentioned to CARINA that someone may want to talk with patient and let her know she will have to participate in therapy or she will get cut by insurance. CARINA called Julieth and asked her to please start the pre-cert. Plan: [facility] TCU pending insurance approval. Ivon VALDEZ
--- NOTE | 2019-11-01 15:32 | PCM.PN.HOSP ---
Subjective: Feeling better, states that her left knee hurts more than her right. Vitals/I&O's: Vital Signs Temp Pulse Resp BP Pulse Ox 97.3 F L 108 H 16 140/76 H 94 11/01/19 09:06 11/01/19 13:59 11/01/19 09:06 11/01/19 09:06 11/01/19 09:06 Oxygen Delivery Method Room Air Weight: 187 lb 9.814 oz Body Mass Index (BMI) 33.2 Intake and Output for Last 24 Hours 10/30/19 10/31/19 11/01/19 23:59 23:59 23:59 Intake Total 1461.5 / 1461.5 Output Total 1180 / 1180 450 / 450 Balance 281.5 / 281.5 -450 / -450 General: Alert, Oriented x3, Cooperative, No apparent distress HEENT: Atraumatic, PERRLA, EOMI, Normocephalic Oral: Moist Mucosa Neck: Supple, No JVD Lungs: Clear to auscultation, Normal air movement, No rhonchi, No wheeze, No rales, Diminished Cardiovascular: Regular rate, Regular Rhythm, Normal S1, Normal S2, No murmurs Abdomen: Soft, Non Tender, Non-Distended, No Hepato-splenomegaly Extremities: No edema, Capillary Refill Less than 3 Seconds Skin: No rashes, No breakdown Neurological: Neuro grossly intact, Sensory exam intact to light touch and pain Psych/Mental Status: Normal Affect, Appropriate Microbiology Past 72 Hours 10/31/19 02:00 Urine, Clean Catch Urine Culture - Preliminary Culture exhibits no growth. Laboratory Results 10/31/19 17:32: POC Glucose 164 H 10/31/19 21:17: POC Glucose 164 H 11/01/19 05:40: WBC 12.3 H, RBC 3.97 L, Hgb 11.2 L, Hct 35.4 L, MCV 89.2, MCH 28.2, MCHC 31.6 L, RDW Std Deviation 43.8, RDW Coeff of Ahsan 13.4, Plt Count 258, MPV 10.6, Immature Gran % (Auto) 0.400, Neut % (Auto) 71.8 H, Lymph % (Auto) 17.2 L, [place] % (Auto) 9.8, Eos % (Auto) 0.5, Baso % (Auto) 0.3, Absolute Neuts (auto) 8.8 H, Absolute Lymphs (auto) 2.11, Nucleated RBC % 0 11/01/19 05:40: Sodium 132 L, Potassium 4.0, Chloride 101, Carbon Dioxide 26.0, Anion Gap 5, BUN 22 H, Creatinine 1.05 H, Estim Creat Clear Calc 37.12, Est GFR (MDRD) Af Amer 65, Est GFR (MDRD) Non-Af 54 L, BUN/Creatinine Ratio 21.0 H, Glucose 143 H, Calcium 9.5 11/01/19 06:31: POC Glucose 157 H 11/01/19 11:06: POC Glucose 160 H 11/01/19 15:00: COVID-19 (FREDIS) Pending Current Medications Acetaminophen (Tylenol) 650 mg PO Q6H PRN PRN PRN Reason: Pain Score 1-10/Temp > 100.7 F Last Admin: 11/01/19 06:27 Dose: 650 mg Documented by: Atorvastatin Calcium (Lipitor) 40 mg PO DAILY@2200 [facility] Last Admin: 10/31/19 21:18 Dose: 40 mg Documented by: Calamine/Phenol (Calmoseptine Ointment) 1 applic TOPICAL BID [facility]; Protocol Last Admin: 11/01/19 09:02 Dose: 1 applicatio Documented by: Cholecalciferol (Vitamin D (25mcg)) 1,000 unit PO DAILY [facility] Last Admin: 11/01/19 09:03 Dose: 1,000 unit Documented by: Dextrose (D50w Syringe) 0 gm IV X1 PRN; Protocol PRN Reason: Hypoglycemia Enoxaparin Sodium (Lovenox) 40 mg SC DAILY [facility] Last Admin: 11/01/19 09:03 Dose: 40 mg Documented by: Glucagon () 1 mg IM .X1 PRN PRN Reason: Hypoglycemia Hydralazine HCl (Apresoline Iv) 10 mg IV Q6H PRN PRN PRN Reason: sbp >160/110 Last Admin: 10/31/19 21:19 Dose: 10 mg Documented by: Sodium Chloride () 250 mls @ 15 mls/hr IV .[id number] PRN PRN Reason: Saline Flush Last Infusion: 10/31/19 03:38 Dose: 0 mls/hr Documented by: Sodium Chloride () 250 mls @ 15 mls/hr IV .[id number] PRN PRN Reason: Additional IVPB Infusion Ceftriaxone Sodium (Rocephin) 1 gm in 50 mls @ 100 mls/hr IV DAILY@2200 [facility] Last Infusion: 10/31/19 21:50 Dose: Infused Documented by: Ibuprofen (Motrin) 400 mg PO Q4H PRN PRN PRN Reason: Pain Score 1-10/Temp > 100.7 F Last Admin: 11/01/19 11:01 Dose: 400 mg Documented by: Insulin Human Lispro (Humalog Kwikpen (Bkc)) 0 unit SC ACHS [facility]; Protocol Last Admin: 11/01/19 11:07 Dose: 2 u Documented by: [facility] Last Admin: 11/01/19 09:02 Dose: 500 mg Documented by: Nitroglycerin (Nitrostat) 0.4 mg SUBLINGUAL Q5M PRN PRN Reason: CARDIAC/CHEST PAIN Nystatin (Mycostatin Powder) 1 applic TOPICAL BID [facility]; Protocol Last Admin: 11/01/19 09:03 Dose: 1 applicatio Documented by: Ondansetron HCl (Zofran) 4 mg IV Q8H PRN PRN PRN Reason: NAUSEA/VOMITING Oxycodone HCl (Oxyir) 5 mg PO Q4H PRN PRN PRN Reason: Pain Score 6-10/10 Last Admin: 11/01/19 11:00 Dose: 5 mg Documented by: Sodium Chloride () 10 - 40 ml IV UD PRN PRN Reason: SALINE FLUSH Last Admin: 10/31/19 21:18 Dose: 40 ml Documented by: Trazodone HCl (Desyrel) 50 mg PO QHS [facility] Last Admin: 10/31/19 21:18 Dose: 50 mg Documented by: Triamterene/HCTZ (Maxzide) 1 tablet PO DAILY [facility] Last Admin: 11/01/19 09:03 Dose: 1 tablet Documented by: STROKE Vital Signs/Narrative: Vital Signs Pulse 11/01/19 13:59 108 H Medical Necessity - Tobacco Use Smoking Status: Never smoker Tobacco Use: Non-smoker Assessment/Plan 1. Acute UTI -We will try to contact the outside hospital stay with her culture data shows, however shows no growth but this is after she is received antibiotics. -We will continue with the Rocephin for now 2. Indeterminate troponin -Troponins were normal here and she does have any chest pain EKG was unremarkable -Echo was unremarkable 3. Mechanical fall with knee pain -Orthopedic surgery consulted -No fracture -Tylenol or ibuprofen as well as narcotics if necessary to control her pain -No steroid injection while having an acute infection 4. DM 2 -She is currently on metformin therefore will be cautious if we have to do any studies -Continue with sliding scale insulin 5. HTN/HLD -Blood pressure is stable -Continue with home blood pressure medications as well as Lipitor DVT: Lovenox Inpatient E&M: 64514 Subs Hosp L2
[2019-11-01 17:00] LABS: Bedside Glucose 130 mg/dL (70-110)
[2019-11-01] MEDS: Atorvastatin Calcium 40 MG Tablet PO (21:49)
[2019-11-01] MEDS: traZODone 50 MG Tablet PO (21:49)
[2019-11-01] MEDS: Ceftriaxone 1 GM/50 ML BAG IV (21:50)
[2019-11-01] MEDS: 0.9% Saline Lock 10 ML Syringe IV (21:50)
[2019-11-01 23:20] LABS: Bedside Glucose 141 mg/dL (70-110)
[2019-11-02 00:07] VITALS: BP 157/87; PULSE 107; RESP 16; TEMP 36.8; O2SAT 96
[2019-11-02 03:00] VITALS: PULSE 98
[2019-11-02] MEDS: Ibuprofen 400 MG Tablet PO (04:50)
[2019-11-02] MEDS: oxyCODONE 5 MG Tablet PO (04:50)
[2019-11-02 05:50] VITALS: BP 168/75; PULSE 101; RESP 14; TEMP 37; O2SAT 93
[2019-11-02 05:53] VITALS: BP 168/75; PULSE 101
[2019-11-02] MEDS: hydrALAZINE 20 MG/ML Vial 10 MG IV (05:53)
[2019-11-02] MEDS: 0.9% Saline Lock 10 ML Syringe IV ×2 (05:54→08:04)
[2019-11-02 06:17] LABS: Absolute Lymphocyte Count 1.55 X10^3/uL (0.83-4.51); Absolute Neutrophil Count 8.5 X10^3/uL (2.0-7.7); Basophil# 0.03 X10^3/uL; Basophil% 0.3 % (0-1); Eosinophil# 0.21 X10^3/uL; Eosinophils% 1.9 % (0-5); Hematocrit 34.3 % (37-47); Hemoglobin 10.9 g/dL (12.0-15.0); Lymphocyte # 1.55 X10^3/ul (4.0); Mean Corp Hgb Conc 31.8 g/dL (32-36); Mean Corpuscular Hgb 28.2 pg (27.0-32.0); Mean Corpuscular Volume 88.9 fL (81-99); Mean Platelet Vol. 10.7 fl (6.2-12.0); Monocyte# 0.78 X10^3/uL; Monocyte% 7.1 % (0-10); NRBC Flagged by Analyzer 0 % (0-5); Neutrophil # 8.45 X10^3/uL (2.7-7.7); Neutrophil % 76.3 % (47-70); Platelet Count 275 K/mm3 (150-450); RBC Distribution Width CV 13.5 % (11.6-14.6); RBC Distribution Width SD 43.8 fl (35.1-43.9); Red Blood Count 3.86 M/mm3 (4.2-5.4); White Blood Count 11.1 K/mm3 (4.4-11.0)
[2019-11-02 06:50] LABS: Bedside Glucose 137 mg/dL (70-110)
[2019-11-02 06:55] VITALS: PULSE 104
[2019-11-02] MEDS: Ondansetron 4 MG/2 ML Vial IV (08:04)
[2019-11-02 08:12] VITALS: BP 133/42; PULSE 98; RESP 16; TEMP 36.6; O2SAT 97
--- NOTE | 2019-11-02 08:25 | PCM.TXEXTCAR ---
- Diet 10/31/19 01:02 Diet: Cardiac: Calorie-Controlled Food consistency:: Soft Liquid Consistency:: Regular/Thin How many daily calories?: 1800 calorie - Routine Orders/Code Status Code Status: Full Code - Therapies Physical Therapy: Eval and Treat Occupational Therapy: Eval and Treat - Allergies/Procedures Done in Hospital Allergies/Adverse Reactions: Allergies Penicillins Allergy (Verified 10/31/19 00:21) unknown Sulfa (Sulfonamide Antibiotics) Allergy (Verified 10/31/19 00:21) deathly ill sulfamethoxazole [From Bactrim] Allergy (Verified 10/31/19 00:21) deathly ill trimethoprim [From Bactrim] Allergy (Verified 10/31/19 00:21) deathly ill lisinopril Adverse Reaction (Verified 10/31/19 00:21) cough Procedures: 2-D Echocardiogram - Type of Care/Length of Stay Estimated LOS: Convalescent Care Less Than 30 days Type of Care Needed: Skilled Rehab Potential: Good Prognosis: Good - Additional Orders/Day of Discharge Day of Discharge: 11/02/19 - Follow Up Care Primary Care Physician: IWONA MCGHEE [Other] Please follow up with your Primary Care Physician in: 3-5 days
--- NOTE | 2019-11-02 09:00 | CASEMGMT ---
CARINA spoke with Julieth in TCU and patient was approved. Ivon RAMIREZ MSW
--- NOTE | 2019-11-02 09:30 | PHA.DC.MR ---
Pharmacy Service has performed discharge medication reconciliation for this patient. The patient's discharge medication list was reviewed for discrepancies and discrepancies were resolved. Home Medications Atorvastatin Calcium [Lipitor] 40 mg PO DAILY 10/31/19 Cholecalciferol (VIT D3) [Vitamin D3] 1,000 unit PO DAILY 10/31/19 Metformin HCl [Metformin HCl ER] 500 mg PO DAILY 10/31/19 Triamterene 75MG/Hctz 50MG [Maxzide] 1 tab PO DAILY 10/31/19 traZODone [Desyrel] 50 mg PO QHS 10/31/19 Cefdinir [Omnicef [equiv]] 300 mg PO Q12H #6 cap 11/02/19
[2019-11-02] MEDS: Enoxaparin 40 MG/0.4 ML Syringe SC (09:54)
[2019-11-02] MEDS: metFORMIN (XR) 500 MG Tablet PO (09:54)
[2019-11-02] MEDS: Menthol/Lanolin/Calamine/Znox 113 GM Tube 1 APPLIC TOPICAL (09:55)
[2019-11-02] MEDS: Triamterene 75MG/Hctz 50MG Tablet 1 TABLET PO (09:55)
[2019-11-02] MEDS: Nystatin Powder 15gm Bottle 1 APPLIC TOPICAL (09:56)
--- NOTE | 2019-11-02 10:09 | NURSING ---
report called to ezekiel Anglin
[2019-11-02 11:15] LABS: Bedside Glucose 121 mg/dL (70-110)
--- NOTE | 2019-11-02 12:28 | DS.PCM_ITS ---
Discharge Date and Diagnosis Date of Admission: 10/31/19 Date of Discharge: 11/02/19 Hospital Course and Treatment Imaging Results: Echo: Interpretation Summary Mildly dilated left ventricle. The estimated ejection fraction is 55-60 %. Stage 1 diastolic dysfunction. Trivial mitral valve insufficiency. Unable to estimate RV systolic pressure due to insufficient tricuspid regurgitant envelope. The study was technically difficult. There is no comparison study available. Consults: Ortho Operations: None Procedures: 2-D Echocardiogram Summary of Care Provided: Per HPI: The patient is a 79 year old F with a past medical history of arthritis and hypertension. She was admitted as a direct admit from [facility] after she went there on 10/22/2019 with a complaint of mechanical fall and bilateral knee pain. Patient said her knee pain is gradually been getting worse to the point where she cannot ambulate well. She had fallen the day before admission and per discussion with the ED doctor at [place], she had also fallen on day of presentation. However patient denied falling on day of presentation and says she just felt too weak to get out of her chair. She states she had been scheduled to have knee surgery some years ago but this never came on. Her knee pain is gradually gotten worse. She denied any fever or chills, chest pain, shortness of breath, nausea vomiting or diarrhea. Review of symptoms otherwise negative. Imaging done in [place] showed tricompartmental osteoarthrosis worse in the left knee than right knee. Labs done also showed evidence of UTI with WBC of 13.6. Initial troponin also thought to be mildly elevated though she had no cardiac symptoms. She was started on IV ciprofloxacin and transferred to [facility] per family request as her daughter works here. Patient seen and examined on arrival to [facility]. She still complained of bilateral knee pain worse in the left knee. Review of systems otherwise negative. She has been admitted to be managed for debility due to bilateral knee pain from osteoarthritis and UTI as well as indeterminate troponins. Hospital Course: 1. Acute UTI with mechanical fall and knee pain/indeterminate troponin- 79-year-old female who had a mechanical fall and fell on her knees presenting with knee pain at outside hospital. At the time she was found to have a UTI. I did call over to the [place] microbiology lab and they are growing a gram-negative jorge however sensitivities have not been completed yet. She is improving on Rocephin therefore she can be discharged to the senior living facility on Omnicef twice daily. Orthopedic surgery did evaluate her for her knee pain since there is no acute fracture they recommended NSAIDs for pain, but they were going to forego and a steroid injection while she had was having an acute infection. Also of note in the outside hospital she had an indeterminate troponin, however when she presented here her troponins were unremarkable. She did undergo an echo for completion, and this was also unremarkable. I discussed with her the plan for discharge today and she expressed understanding of the risks and benefits of going to the senior living facility today. 2. HTN, HLD, DM 2 all complicate her care and her home medications were evaluated and continued where appropriate - Physical Exam Vitals/I&O's: Vital Signs Temp Pulse Resp BP Pulse Ox 97.8 F 98 16 133/42 H 97 11/02/19 08:12 11/02/19 08:12 11/02/19 08:12 11/02/19 08:12 11/02/19 08:12 Oxygen Delivery Method Room Air Weight: 187 lb 9.814 oz Body Mass Index (BMI) 33.2 Intake and Output for Last 24 Hours 10/31/19 11/01/19 11/02/19 23:59 23:59 23:59 Intake Total 1461.5 / 1461.5 290 / 290 760 / 760 Output Total 1180 / 1180 1650 / 1650 1075 / 1075 Balance 281.5 / 281.5 -1360 / -1360 -315 / -315 General: Alert, Oriented x3, Cooperative, No apparent distress HEENT: Atraumatic, PERRLA, EOMI, Normocephalic Oral: Moist Mucosa Neck: Supple, No JVD Lungs: Clear to auscultation, Normal air movement, No rhonchi, No wheeze, No rales, Diminished Cardiovascular: Regular rate, Regular Rhythm, Normal S1, Normal S2, No murmurs Abdomen: Soft, Non Tender, Non-Distended, No Hepato-splenomegaly Extremities: No edema, Capillary Refill Less than 3 Seconds Skin: No rashes, No breakdown Neurological: Neuro grossly intact, Sensory exam intact to light touch and pain Psych/Mental Status: Normal Affect, Appropriate Microbiology Past 72 Hours 10/31/19 02:00 Urine, Clean Catch Urine Culture - Final Culture exhibits no growth. Laboratory Results 11/01/19 15:00: COVID-19 (FREDIS) Negative 11/01/19 16:57: POC Glucose 130 H 11/01/19 21:47: POC Glucose 141 H 11/02/19 05:10: WBC 11.1 H, RBC 3.86 L, Hgb 10.9 L, Hct 34.3 L, MCV 88.9, MCH 28.2, MCHC 31.8 L, RDW Std Deviation 43.8, RDW Coeff of Ahsan 13.5, Plt Count 275, MPV 10.7, Immature Gran % (Auto) 0.400, Neut % (Auto) 76.3 H, Lymph % (Auto) 14.0 L, [place] % (Auto) 7.1, Eos % (Auto) 1.9, Baso % (Auto) 0.3, Absolute Neuts (auto) 8.5 H, Absolute Lymphs (auto) 1.55, Nucleated RBC % 0 11/02/19 06:45: POC Glucose 137 H 11/02/19 11:04: POC Glucose 121 H Current Medications Acetaminophen (Tylenol) 650 mg PO Q6H PRN PRN PRN Reason: Pain Score 1-10/Temp > 100.7 F Last Admin: 11/01/19 06:27 Dose: 650 mg Documented by: Atorvastatin Calcium (Lipitor) 40 mg PO DAILY@2200 [facility] Last Admin: 11/01/19 21:49 Dose: 40 mg Documented by: Calamine/Phenol (Calmoseptine Ointment) 1 applic TOPICAL BID [facility]; Protocol Last Admin: 11/02/19 09:55 Dose: 1 applicatio Documented by: Cholecalciferol (Vitamin D (25mcg)) 1,000 unit PO DAILY [facility] Last Admin: 11/02/19 09:55 Dose: 1,000 unit Documented by: Dextrose (D50w Syringe) 0 gm IV X1 PRN; Protocol PRN Reason: Hypoglycemia Enoxaparin Sodium (Lovenox) 40 mg SC DAILY [facility] Last Admin: 11/02/19 09:54 Dose: 40 mg Documented by: Glucagon () 1 mg IM .X1 PRN PRN Reason: Hypoglycemia Hydralazine HCl (Apresoline Iv) 10 mg IV Q6H PRN PRN PRN Reason: sbp >160/110 Last Admin: 11/02/19 05:53 Dose: 10 mg Documented by: Sodium Chloride () 250 mls @ 15 mls/hr IV .[id number] PRN PRN Reason: Saline Flush Last Infusion: 10/31/19 03:38 Dose: 0 mls/hr Documented by: Sodium Chloride () 250 mls @ 15 mls/hr IV .[id number] PRN PRN Reason: Additional IVPB Infusion Ceftriaxone Sodium (Rocephin) 1 gm in 50 mls @ 100 mls/hr IV DAILY@2200 [facility] Last Infusion: 11/01/19 22:25 Dose: Infused Documented by: Ibuprofen (Motrin) 400 mg PO Q4H PRN PRN PRN Reason: Pain Score 1-10/Temp > 100.7 F Last Admin: 11/02/19 04:50 Dose: 400 mg Documented by: Insulin Human Lispro (Humalog Kwikpen (Bkc)) 0 unit SC ACHS [facility]; Protocol Last Admin: 11/02/19 12:06 Dose: Not Given Documented by: Metformin HCl (Glucophage Xr) [facility] Last Admin: 11/02/19 09:54 Dose: 500 mg Documented by: Nitroglycerin (Nitrostat) 0.4 mg SUBLINGUAL Q5M PRN PRN Reason: CARDIAC/CHEST PAIN Nystatin (Mycostatin Powder) 1 applic TOPICAL BID [facility]; Protocol Last Admin: 11/02/19 09:56 Dose: 1 applicatio Documented by: Ondansetron HCl (Zofran) 4 mg IV Q8H PRN PRN PRN Reason: NAUSEA/VOMITING Last Admin: 11/02/19 08:04 Dose: 4 mg Documented by: Oxycodone HCl (Oxyir) 5 mg PO Q4H PRN PRN PRN Reason: Pain Score 6-10/10 Last Admin: 11/02/19 04:50 Dose: 5 mg Documented by: Sodium Chloride () 10 - 40 ml IV UD PRN PRN Reason: SALINE FLUSH Last Admin: 11/02/19 08:04 Dose: 20 ml Documented by: Trazodone HCl (Desyrel) 50 mg PO QHS [facility] Last Admin: 11/01/19 21:49 Dose: 50 mg Documented by: Triamterene/HCTZ (Maxzide) 1 tablet PO DAILY [facility] Last Admin: 11/02/19 09:55 Dose: 1 tablet Documented by: Home Medications: Medications to take at Discharge Atorvastatin Calcium [Lipitor] 40 mg PO DAILY 10/31/19 Cholecalciferol (VIT D3) [Vitamin D3] 1,000 unit PO DAILY 10/31/19 Metformin HCl [Metformin HCl ER] 500 mg PO DAILY 10/31/19 Triamterene 75MG/Hctz 50MG [Maxzide] 1 tab PO DAILY 10/31/19 traZODone [Desyrel] 50 mg PO QHS 10/31/19 Cefdinir [Omnicef [equiv]] 300 mg PO Q12H #6 cap 11/02/19 Following Prescriptions Were Given to Patient: Cefdinir [Omnicef [equiv]] 300 mg PO Q12H #6 cap Primary Care Physician: IWONA MCGHEE [Other] Please follow up with your Primary Care Physician in: 3-5 days Disposition: Detention facility Minutes spent on discharge:: 35 Patient Condition:: Stable Medical Necessity - Tobacco Use Smoking Status: Never smoker Tobacco Use: Non-smoker Meaningful Use Info Meaningful Use Diagnoses (Choose all that apply): None applicable Inpatient E&M: 75254 Disch Hosp
--- NOTE | 2019-11-02 12:34 | CASEMGMT ---
Patient is ready for discharge to TCU. CARINA copied orders. SW received a call from patient's daughter inquiring if there were certain things that patient can or can't have due to COVID. CARINA told her she should call the TCU SW as she would know what restrictions there may be. CARINA gave her TCU SW Maria De Jesus's name and number. CARINA also called and left a message for Maria De Jesus letting her know above. Plan: d/c to TCU under skilled level of care. Ivon RAMIREZ MSW
== END 2019-11-02 13:25 | disposition skilled nursing facility (03) | DRG 690 ==
PROVIDERS: Physician Assistant; Admitting Provider Hospitalist; Referring Provider Student in an Organized Health Care Education/Training Program; Visit Provider Family Medicine
DX: N39.0 Urinary tract infection, site not specified (principal); M17.0 Bilateral primary osteoarthritis of knee; R29.6 Repeated falls; E11.9 Type 2 diabetes mellitus without complications; I10 Essential (primary) hypertension; E78.5 Hyperlipidemia, unspecified; R53.81 Other malaise; Z79.84 Long term (current) use of oral hypoglycemic drugs; Z79.899 Other long term (current) drug therapy; Z88.0 Allergy status to penicillin
CPT/HCPCS: 36415; 80048; 80053; 80061; 82962; 83735; 84100; 84484; 85025; 85027; 87086; 87635; 93005; 93306; 94799; 97110; 97162; 97166; 97530; J7050; Q9957; A4216; J0744; J2405; U0003

== ENCOUNTER 2019-11-02 13:30 | Inpatient (IN) | payer MEDICARE, SELFPAY ==
[2019-10-31 00:15] VITALS: BMI 33.2
[2019-11-02 13:48] VITALS: BP 127/62; PULSE 94; RESP 18; TEMP 36.6; O2SAT 99; BMI 33.5
[2019-11-02 14:06] VITALS: BP 127/62; PULSE 94; RESP 18; TEMP 36.6; O2SAT 99
--- NOTE | 2019-11-02 14:11 | HP.PCM_ITS ---
Problem List (1) Debility Status: Acute (2) Fall Status: Acute (3) Bilateral knee pain Status: Acute (4) Osteoarthritis of knees, bilateral Status: Acute (5) Urinary tract infection Status: Acute (6) Diabetes mellitus Status: Chronic (7) Hypertension Status: Chronic (8) Hyperlipidemia Status: Chronic (9) Vitamin D deficiency Status: Chronic (10) Insomnia Status: Chronic History of Present Illness Date of Admission: 11/02/19 Chief Complaint: Here for rehabilitation, strengthening, prior to discharge home with family. 10/22/2019 The patient is a 79 year old Female with below past medical history admitted to [facility] after mechanical fall, bilateral knee pain. 10/31/2019 Admit to [facility], direct admission from [facility]. Resident's daughter works here. Too weak to get out of chair. Was planning total knee replacement, delayed by pandemic. Urinary Tract Infection with IV Ciprofloxacin. Knee pain left worse than right. PT/OT consult, Pain Control, Orthopedics for osteoarthritis of knees. IV Cipro for urinary tract infection. Cycle troponin for indeterminate troponin. 10/31/2019 EKG normal sinus rhythm, Normal EKG. 10/31/2019 Echo mildly dilated left ventricle. EF 55% to 60%. Stage 1 diastolic dysfunction. 10/31/2019 Dr. Jacinto consulted, recommended conservative therapy for knee pain, consider injections, total knee replacement after urinary tract infection resolved. 11/01/2019 Rocephin for urinary tract infection. Troponin normal. No steroid injections with active infection. 11/02/2019 Admit to TCU with debility, here for rehabilitation, strengthening, prior to discharge home with family. Past Medical History Past Medical History (Chronic Problems): Chronic Problems (Last Updated 10/31/19 @ 16:[address] Compa Jacinto MD) Diabetes mellitus (Chronic) Hypertension (Chronic) Hyperlipidemia (Chronic) Vitamin D deficiency (Chronic) Insomnia (Chronic) Medical History: Medical History (Last Updated 10/31/19 @ 16:[address] Compa Jacinto MD) Arthritis M19.90 Diabetes E11.9 Hyperlipidemia E78.5 HTN (hypertension) I10 HTN (hypertension) I10 Allergies Penicillins Allergy (Verified 10/31/19 00:21) unknown Sulfa (Sulfonamide Antibiotics) Allergy (Verified 10/31/19 00:21) deathly ill sulfamethoxazole [From Bactrim] Allergy (Verified 10/31/19 00:21) deathly ill trimethoprim [From Bactrim] Allergy (Verified 10/31/19 00:21) deathly ill lisinopril Adverse Reaction (Verified 10/31/19 00:21) cough Home Medications: Ambulatory Orders Medication Instructions Recorded Atorvastatin Calcium [Lipitor] 40 mg PO DAILY 10/31/19 Cholecalciferol (VIT D3) [Vitamin 1,000 unit PO DAILY 10/31/19 D3] Metformin HCl [Metformin HCl ER] 500 mg PO DAILY 10/31/19 Triamterene 75MG/Hctz 50MG 1 tab PO DAILY 10/31/19 [Maxzide] traZODone [Desyrel] 50 mg PO QHS 10/31/19 Cefdinir [Omnicef [equiv]] 300 mg PO Q12H #6 cap 11/02/19 Surgical History: no surgical history Psychiatric History: No pertinent psych hx 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 Denies: Joint T enderness Skin: Denies: Rash, Wounds Neurological: Denies: Numbness, Tingling, Focal weakness Psychiatric: Denies: Anxiety, Depression, Homicidal Ideations, Suicidal Ideations Hematologic/ Lymphatic: Denies: Easy Bruising, Easy Bleeding VTE Information - Inpt Only VTE Present on Admission: No VTE Mechan Device Prophylaxis: Knee High JULIANN Hose VTE Pharm Prophylaxis ordered?: Yes Patient Problems: Active and Suspected Problems (Last Updated 10/31/19 @ 16:[address] Compa Jacinto MD) Debility (Acute) Fall (Acute) Bilateral knee pain (Acute) Osteoarthritis of knees, bilateral (Acute) Urinary tract infection (Acute) - Physical Exam Vitals/I&O's: Vital Signs Temp Pulse Resp BP Pulse Ox 97.9 F 94 18 127/62 H 99 11/02/19 14:06 11/02/19 14:06 11/02/19 14:06 11/02/19 14:06 11/02/19 14:06 Oxygen Delivery Method Room Air Weight: 85.8 kg Body Mass Index (BMI) 33.5 General: Alert, Oriented x3, Cooperative HEENT: Atraumatic, PERRLA, EOMI, Normocephalic Neck: Supple, No JVD, Negative Carotid Bruits Lungs: Clear to auscultation, Normal air movement Cardiovascular: Regular rate, No murmurs Abdomen: Bowel Sounds Present, Soft, Non Tender Extremities: No edema, Capillary Refill Less than 3 Seconds Skin: No rashes, No breakdown Musculoskeletal: No Tenderness to Palpation of Joints or Extremities Neurological: Cranial nerves II-XII grossly intact Psych/Mental Status: Normal Affect, Appropriate Current Medications Sodium Chloride () 10 - 40 ml IV UD PRN PRN Reason: SALINE FLUSH Assessment/Plan All Active Problems (Last Updated 10/31/19 @ 16:[address] Compa Jacinto MD) Debility (Acute) Fall (Acute) Bilateral knee pain (Acute) Osteoarthritis of knees, bilateral (Acute) Urinary tract infection (Acute) 79 year old female with below past medical history hospitalized for fall, bilateral knee pain, complicated by urinary tract infection, admitted to TCU with debility, here for rehabilitation, strengthening, prior to discharge home with family. * Debility - PT/OT. * Pain - Tylenol 1000MG Q8H, Tramadol 50MG Q6H PRN pain (1-5), Oxycodone 2.5MG Q4H PRN pain (6-10). * Bowel - Miralax 17GM daily, Senna/colace 1 tablet BID, Dulcolax 10MG MS daily PRN. * Adult immunization - Administer Prevnar 13, Pneumovax 23, Fluzone as appropriate. * DVT prophylaxis - Lovenox 40MG SC daily. * Diabetes Mellitus II - Metformin 500MG daily. * Hypertension - Maxzide 75/50MG daily. * Hyperlipidemia - Atorvastatin 40MG QHS. * Vitamin D deficiency - D3 1000IU daily. * Insomnia - Trazodone 50MG QHS. * Urinary Tract Infection - Cefdinir 300MG BID thru 11/05/2019. * Osteoarthritis of knees - Schedule appt with Dr. Jacinto's office in 1 week to consider further therapy for severe osteoarthritis of knees. She has had steroid injections of knees in the past, and they are effective for 3-4 months.
[2019-11-02] MEDS: Acetaminophen 500 MG Tablet 1000 MG PO ×2 (16:21→21:25)
--- NOTE | 2019-11-02 16:28 | NURSING ---
this nurse took saline lock out of left hand pr RN.
[2019-11-02 17:11] LABS: Bedside Glucose 156 mg/dL (70-110)
[2019-11-02] MEDS: Nystatin Powder 15gm Bottle 1 APPLIC TOPICAL (17:50)
[2019-11-02] MEDS: Menthol/Lanolin/Calamine/Znox 113 GM Tube 1 APPLIC TOPICAL (17:51)
[2019-11-02] MEDS: Cefdinir 300 MG Capsule PO (17:51)
[2019-11-02] MEDS: Atorvastatin Calcium 40 MG Tablet PO (21:26)
[2019-11-02] MEDS: traZODone 50 MG Tablet PO (21:26)
[2019-11-02 21:30] LABS: Bedside Glucose 159 mg/dL (70-110)
[2019-11-03 05:06] VITALS: BP 166/73; PULSE 96; RESP 16; TEMP 36.8
[2019-11-03] MEDS: Triamterene 75MG/Hctz 50MG Tablet 1 TABLET PO (05:09)
[2019-11-03] MEDS: Acetaminophen 500 MG Tablet 1000 MG PO ×3 (05:10→19:54)
[2019-11-03] MEDS: Enoxaparin 40 MG/0.4 ML Syringe SC (05:10)
[2019-11-03] MEDS: Cefdinir 300 MG Capsule PO ×2 (05:10→17:16)
[2019-11-03] MEDS: Menthol/Lanolin/Calamine/Znox 113 GM Tube 1 APPLIC TOPICAL ×2 (05:14→17:17)
[2019-11-03] MEDS: Nystatin Powder 15gm Bottle 1 APPLIC TOPICAL ×2 (05:14→17:17)
[2019-11-03 06:30] LABS: Bedside Glucose 108 mg/dL (70-110)
[2019-11-03 08:15] LABS: Absolute Lymphocyte Count 1.46 X10^3/uL (0.83-4.51); Absolute Neutrophil Count 5.2 X10^3/uL (2.0-7.7); Basophil# 0.02 X10^3/uL; Basophil% 0.3 % (0-1); Eosinophil# 0.25 X10^3/uL; Eosinophils% 3.4 % (0-5); Hematocrit 34.8 % (37-47); Hemoglobin 10.9 g/dL (12.0-15.0); Lymphocyte # 1.46 X10^3/ul (4.0); Lymphocyte % 19.6 % (19-41); Mean Corp Hgb Conc 31.3 g/dL (32-36); Mean Corpuscular Volume 89.5 fL (81-99); Mean Platelet Vol. 10.3 fl (6.2-12.0); Monocyte# 0.53 X10^3/uL; Monocyte% 7.1 % (0-10); NRBC Flagged by Analyzer 0 % (0-5); Neutrophil # 5.15 X10^3/uL (2.7-7.7); Neutrophil % 69.2 % (47-70); Platelet Count 297 K/mm3 (150-450); RBC Distribution Width CV 13.3 % (11.6-14.6); RBC Distribution Width SD 43.5 fl (35.1-43.9); Red Blood Count 3.89 M/mm3 (4.2-5.4); White Blood Count 7.4 K/mm3 (4.4-11.0)
[2019-11-03 08:46] LABS: Anion Gap 9 (5-15); BUN 31 mg/dL (7-18); BUN/Creat Ratio 27.9 RATIO (10-20); Calcium,Total 9.9 mg/dL (8.5-10.1); Chloride 104 mmol/L (98-107); Creatinine, Serum 1.11 mg/dL (0.55-1.02); EST Glomerular Filtration Rate 51 mL/min (>60); Est Glom Filt Rate - Afr Amer 61 mL/min (>60); Estimated Creatinine Clearance 35.11 ml/min; Glucose 109 mg/dL (74-106); Potassium 3.9 mmol/L (3.5-5.1); Sodium Level 137 mmol/L (136-145)
[2019-11-03] MEDS: traMADol 50 MG Tablet PO ×2 (08:49→23:09)
[2019-11-03] MEDS: metFORMIN (XR) 500 MG Tablet PO (08:50)
[2019-11-03] MEDS: Tuberculin,Purif.prot.deriv. 50 TU/ML Vial 5 ML ID (10:50)
[2019-11-03 11:35] LABS: Bedside Glucose 118 mg/dL (70-110)
[2019-11-03 14:11] VITALS: BP 125/71; PULSE 93; RESP 18; TEMP 36.1; O2SAT 96
[2019-11-03 16:26] LABS: Bedside Glucose 140 mg/dL (70-110)
[2019-11-03] MEDS: Senna/Docusate Sodium 1 Tablet PO (17:16)
[2019-11-03] MEDS: Atorvastatin Calcium 40 MG Tablet PO (19:54)
[2019-11-03] MEDS: traZODone 50 MG Tablet PO (19:54)
[2019-11-03 21:20] LABS: Bedside Glucose 153 mg/dL (70-110)
[2019-11-04 05:21] VITALS: BP 141/57; PULSE 87; RESP 18; TEMP 37.1; O2SAT 96
[2019-11-04] MEDS: Cefdinir 300 MG Capsule PO ×2 (05:24→17:04)
[2019-11-04] MEDS: Triamterene 75MG/Hctz 50MG Tablet 1 TABLET PO (05:24)
[2019-11-04] MEDS: Acetaminophen 500 MG Tablet 1000 MG PO ×3 (05:24→21:12)
[2019-11-04] MEDS: Enoxaparin 40 MG/0.4 ML Syringe SC (05:25)
[2019-11-04] MEDS: Menthol/Lanolin/Calamine/Znox 113 GM Tube 1 APPLIC TOPICAL ×2 (05:28→17:04)
[2019-11-04] MEDS: Nystatin Powder 15gm Bottle 1 APPLIC TOPICAL ×2 (05:28→17:05)
[2019-11-04 06:26] LABS: Bedside Glucose 106 mg/dL (70-110)
[2019-11-04 09:36] VITALS: PULSE 99; RESP 16; O2SAT 97
[2019-11-04] MEDS: metFORMIN (XR) 500 MG Tablet PO (09:40)
[2019-11-04 11:01] LABS: Bedside Glucose 123 mg/dL (70-110)
[2019-11-04 14:18] VITALS: BP 126/69; PULSE 88; RESP 16; TEMP 36.4; O2SAT 97
[2019-11-04] MEDS: traMADol 50 MG Tablet PO (16:24)
[2019-11-04 16:41] LABS: Bedside Glucose 137 mg/dL (70-110)
[2019-11-04] MEDS: oxyCODONE 5 MG Tablet 2.5 MG PO (18:21)
[2019-11-04] MEDS: Atorvastatin Calcium 40 MG Tablet PO (21:09)
[2019-11-04] MEDS: traZODone 50 MG Tablet PO (21:09)
[2019-11-04 21:31] LABS: Bedside Glucose 165 mg/dL (70-110)
--- NOTE | 2019-11-05 01:15 | NURSING ---
Pt alarm going off, sitting up on side of bed, confused and not sure where she is. States she needs to go to the br, asking where is. Assisted to br, steady gait, reoriented to place and time.
[2019-11-05] MEDS: Triamterene 75MG/Hctz 50MG Tablet 1 TABLET PO (04:29)
[2019-11-05] MEDS: Cefdinir 300 MG Capsule PO ×2 (04:29→17:22)
[2019-11-05] MEDS: Enoxaparin 40 MG/0.4 ML Syringe SC (04:30)
[2019-11-05] MEDS: Senna/Docusate Sodium 1 Tablet PO (04:30)
[2019-11-05] MEDS: Acetaminophen 500 MG Tablet 1000 MG PO ×3 (04:31→21:01)
[2019-11-05] MEDS: Nystatin Powder 15gm Bottle 1 APPLIC TOPICAL ×2 (04:34→17:22)
[2019-11-05] MEDS: Menthol/Lanolin/Calamine/Znox 113 GM Tube 1 APPLIC TOPICAL ×2 (04:35→17:23)
[2019-11-05 04:36] VITALS: BP 153/60; PULSE 73; RESP 18; TEMP 36.1; O2SAT 95
[2019-11-05 06:26] LABS: Bedside Glucose 105 mg/dL (70-110)
[2019-11-05] MEDS: metFORMIN (XR) 500 MG Tablet PO (09:20)
[2019-11-05] MEDS: traMADol 50 MG Tablet PO ×2 (10:58→17:32)
[2019-11-05 11:00] LABS: Bedside Glucose 194 mg/dL (70-110)
--- NOTE | 2019-11-05 13:19 | CASEMGMT ---
Social Work Discussed code status with pt. Pt confirmed full code. MOLST form completed and placed in chart. Maria De Jesus Galvan MSW [employer]
[2019-11-05 13:49] VITALS: BP 130/57; PULSE 82; RESP 14; TEMP 36.4; O2SAT 14
--- NOTE | 2019-11-05 14:07 | CHAPLAIN ---
Type of Pastoral Visit _x__ Initial Visit ___ Follow-up Visit ___ On-call Visit ___ General Patient Visit ___ Spiritual Assessment ___ Family Conference ___ Bereavement ___ Rapid Response ___ Code Blue ___ Other (describe below) Pastoral Care Referral From _x__ Patient ___ Family ___ Nurse ___ Physician ___ Precision Lathe Operator ___ Associate Juvenile Court Judge ___ Other (describe below) Sacrament/Intervention _x__ Active listening ___ Anointing ___ Muslim ___ Bereavement ___ Communion ___ Rosalia exploration ___ _x__ Life review _x__ Prayer ___ Reconciliation ___ Sacrament of Sick _x__ Supportive presence ___ Wedding ___ Other (describe below) Pastoral Comments patient is happy to have a plan for going home this week; pt is pleasant and talkative; pt states she has great family support;
--- NOTE | 2019-11-05 14:27 | NURSING ---
Patient has been in contact with family.
--- NOTE | 2019-11-05 14:54 | PCM.PN.RX ---
<Debo Bond - Last Filed: 11/05/19 14:54> Progress Note - Pharmacy Subjective: TCU Admission Objective: Allergies Penicillins Allergy (Verified 11/02/19 14:42) unknown Sulfa (Sulfonamide Antibiotics) Allergy (Verified 11/02/19 14:42) deathly ill sulfamethoxazole [From Bactrim] Allergy (Verified 11/02/19 14:42) deathly ill trimethoprim [From Bactrim] Allergy (Verified 11/02/19 14:42) deathly ill lisinopril Adverse Reaction (Verified 11/02/19 14:42) cough Current Medications Generic Name Dose Route Start Last Admin Trade Name Freq PRN Reason Stop Dose Admin Acetaminophen 1,000 mg 11/02/19 16:00 11/05/19 13:44 Tylenol PO 1,000 mg Q8 RODERICK Administration Atorvastatin Calcium 40 mg 11/02/19 22:00 11/04/19 21:09 Lipitor PO 40 mg QHS RODERICK Administration Bisacodyl 10 mg 11/02/19 14:38 Dulcolax RECTAL DAILY PRN PRN Constipation Calamine/Phenol 1 applic 11/02/19 18:00 11/05/19 04:35 Calmoseptine Ointment TOPICAL 1 applicatio BID RODERICK Administration Protocol Cefdinir 300 mg 11/02/19 18:00 11/05/19 04:29 Omnicef [Equiv] PO 11/05/19 18:01 300 mg Q12 RODERICK Administration Cholecalciferol 1,000 unit 11/03/19 06:00 11/05/19 04:29 Vitamin D (25mcg) PO 1,000 unit DAILY RODERICK Administration Enoxaparin Sodium 40 mg 11/03/19 06:00 11/05/19 04:30 Lovenox SC 40 mg DAILY@0600 RODERICK Administration Metformin HCl 500 mg 11/03/19 08:00 11/05/19 09:20 Glucophage Xr PO 500 mg DAILYCM RODERICK Administration Multi-Ingredient Cream 1 applic 11/02/19 16:08 Eucerin TOPICAL BID PRN PRN dry skin Protocol Nystatin 1 applic 11/02/19 18:00 11/05/19 04:34 Mycostatin Powder TOPICAL 1 applic BID RODERICK Administration Protocol Oxycodone HCl 2.5 mg 11/02/19 14:38 11/04/19 18:21 Oxyir PO 2.5 mg Q4H PRN PRN Administration Pain Score 6-10/10 Polyethylene Glycol 17 gm 11/03/19 06:00 11/05/19 04:29 Miralax PO Not Given DAILY RODERICK Senna/Docusate Sodium 1 tablet 11/02/19 18:00 11/05/19 04:30 Senokot-S, Theresa-Colace PO 1 tablet BID RODERICK Administration Sodium Chloride 10 - 40 ml 11/02/19 14:05 IV UD PRN SALINE FLUSH Tramadol HCl 50 mg 11/02/19 14:37 11/05/19 10:58 Ultram PO 50 mg Q6H PRN PRN Administration Pain Score 1-5/10 Trazodone HCl 50 mg 11/02/19 22:00 11/04/19 21:09 Desyrel PO 50 mg QHS RODERICK Administration Triamterene/HCTZ 1 tablet 11/03/19 06:00 11/05/19 04:29 Maxzide PO 1 tablet DAILY RODERICK Administration Tuberculin PPD 5 tu 11/10/19 10:00 Tubersol, Aplisol, Ppd ID 11/10/19 10:01 X1 ONE Problem List (Last Updated 10/31/19 @ 16:[address] Compa Jacinto MD) Debility (Acute) Fall (Acute) Bilateral knee pain (Acute) Osteoarthritis of knees, bilateral (Acute) Urinary tract infection (Acute) Diabetes mellitus (Chronic) Hypertension (Chronic) Hyperlipidemia (Chronic) Vitamin D deficiency (Chronic) Insomnia (Chronic) Vital Signs Temp Pulse Resp BP Pulse Ox 97.5 F L 82 14 130/57 H 14 11/05/19 13:49 11/05/19 13:49 11/05/19 13:49 11/05/19 13:49 11/05/19 13:49 Oxygen Flow Rate (L/min) 94 Oxygen Delivery Method Room Air Weight: 85.8 kg Body Mass Index (BMI) 33.5 Sodium 137 mmol/L (136-145) 11/03/19 08:01 Potassium 3.9 mmol/L (3.5-5.1) 11/03/19 08:01 Chloride 104 mmol/L (98-107) 11/03/19 08:01 Carbon Dioxide 24.0 mmol/L (21.0-32.0) 11/03/19 08:01 Anion Gap 9 (5-15) 11/03/19 08:01 BUN 31 mg/dL (7-18) H 11/03/19 08:01 Creatinine 1.11 mg/dL (0.55-1.02) H 11/03/19 08:01 Est GFR (MDRD) Af Amer 61 mL/min (>60) 11/03/19 08:01 Est GFR (MDRD) Non-Af 51 mL/min (>60) L 11/03/19 08:01 BUN/Creatinine Ratio 27.9 RATIO (10-20) H 11/03/19 08:01 Glucose 109 mg/dL (74-106) H 11/03/19 08:01 Assessment/Plan: 1. Pain: acetaminophen 1000mg PO Q8, tramadol 50mg PO Q6H PRN pain 1-5/10, and oxycodone 2.5mg PO Q4H PRN pain 6-10/10. Please continue to monitor for increased pain, renal function, constipation, and decreased respiratory depressions. 2. UTI: cefdinir 300mg PO Q12 thru 11/05/19. Please continue to monitor for S/S of infection, renal function, discolored stool, and diarrhea. 3. DVT prophylaxis: enoxaparin 40mg SC daily. Please continue to monitor for S/S of bleeding/DVT, platelets (297), hemoglobin (10.9g/dL) and renal function. *4. Type II diabetes mellitus: metformin XR 500mg PO DAILYCM. I did not see a hemoglobin A1c in the patient's chart. Please consider ordering one now and then every 3 months as clinically appropriate. Thanks. Please continue to monitor blood glucose, for S/S of hypo/hyperglycemia, and renal function. 5. Hypertension: triamterene 75mg/hydrochlorothiazide 25mg 1T PO daily. Please continue to monitor BP (130/57) and renal function. 6. Hyperlipidemia: atorvastatin 40mg PO QHS. Please continue to monitor for muscle pain, LFTs, and lipid panel. *7. Vitamin D deficiency: cholecalciferol 1000units PO daily. Please consider ordering a vitamin D level now and then annually as clinically appropriate. Thanks. Psychotropic Medications: *1. Insomnia: trazodone 50mg PO QHS. Please consider GDR by 05/2020 if clinically appropriate. Thanks. Unnecessary Medications: None *Bowel Regimen: Miralax 17gm PO daily, senna/docusate 1T PO BID, and bisacodyl 10mg ND daily PRN constipation. Patient has refused 3/3 doses of Miralax and 4/6 doses of senna/docusate. Please consider changing from scheduled to PRN constipation. Thanks. Date of Note:: 11/05/19 - Provider Comments Provider responsibility: Provider responsible to enter orders to implement recommendations <Yogesh Corbett Chi - Last Filed: 11/05/19 16:48> Progress Note - Pharmacy Subjective: [] Objective: Allergies Penicillins Allergy (Verified 11/02/19 14:42) unknown Sulfa (Sulfonamide Antibiotics) Allergy (Verified 11/02/19 14:42) deathly ill sulfamethoxazole [From Bactrim] Allergy (Verified 11/02/19 14:42) deathly ill trimethoprim [From Bactrim] Allergy (Verified 11/02/19 14:42) deathly ill lisinopril Adverse Reaction (Verified 11/02/19 14:42) cough Current Medications Generic Name Dose Route Start Last Admin Trade Name Freq PRN Reason Stop Dose Admin Acetaminophen 1,000 mg 11/02/19 16:00 11/05/19 13:44 Tylenol PO 1,000 mg Q8 RODERICK Administration Atorvastatin Calcium 40 mg 11/02/19 22:00 11/04/19 21:09 Lipitor PO 40 mg QHS RODERICK Administration Bisacodyl 10 mg 11/02/19 14:38 Dulcolax RECTAL DAILY PRN PRN Constipation Calamine/Phenol 1 applic 11/02/19 18:00 11/05/19 04:35 Calmoseptine Ointment TOPICAL 1 applicatio BID RODERICK Administration Protocol Cefdinir 300 mg 11/02/19 18:00 11/05/19 04:29 Omnicef [Equiv] PO 11/05/19 18:01 300 mg Q12 RODERICK Administration Cholecalciferol 1,000 unit 11/03/19 06:00 11/05/19 04:29 Vitamin D (25mcg) PO 1,000 unit DAILY RODERICK Administration Enoxaparin Sodium 40 mg 11/03/19 06:00 11/05/19 04:30 Lovenox SC 40 mg DAILY@0600 RODERICK Administration Metformin HCl 500 mg 11/03/19 08:00 11/05/19 09:20 Glucophage Xr PO 500 mg DAILYCM RODERICK Administration Multi-Ingredient Cream 1 applic 11/02/19 16:08 Eucerin TOPICAL BID PRN PRN dry skin Protocol Nystatin 1 applic 11/02/19 18:00 11/05/19 04:34 Mycostatin Powder TOPICAL 1 applic BID RODERICK Administration Protocol Oxycodone HCl 2.5 mg 11/02/19 14:38 11/04/19 18:21 Oxyir PO 2.5 mg Q4H PRN PRN Administration Pain Score 6-10/10 Polyethylene Glycol 17 gm 11/03/19 06:00 11/05/19 04:29 Miralax PO Not Given DAILY RODERICK Senna/Docusate Sodium 1 tablet 11/02/19 18:00 11/05/19 04:30 Senokot-S, Theresa-Colace PO 1 tablet BID RODERICK Administration Sodium Chloride 10 - 40 ml 11/02/19 14:05 IV UD PRN SALINE FLUSH Tramadol HCl 50 mg 11/02/19 14:37 11/05/19 10:58 Ultram PO 50 mg Q6H PRN PRN Administration Pain Score 1-5/10 Trazodone HCl 50 mg 11/02/19 22:00 11/04/19 21:09 Desyrel PO 50 mg QHS RODERICK Administration Triamterene/HCTZ 1 tablet 11/03/19 06:00 11/05/19 04:29 Maxzide PO 1 tablet DAILY RODERICK Administration Tuberculin PPD 5 tu 11/10/19 10:00 Tubersol, Aplisol, Ppd ID 11/10/19 10:01 X1 ONE Problem List (Last Updated 10/31/19 @ 16:[address] Compa Jacinto MD) Debility (Acute) Fall (Acute) Bilateral knee pain (Acute) Osteoarthritis of knees, bilateral (Acute) Urinary tract infection (Acute) Diabetes mellitus (Chronic) Hypertension (Chronic) Hyperlipidemia (Chronic) Vitamin D deficiency (Chronic) Insomnia (Chronic) Vital Signs Temp Pulse Resp BP Pulse Ox 97.5 F L 82 14 130/57 H 14 11/05/19 13:49 11/05/19 13:49 11/05/19 13:49 11/05/19 13:49 11/05/19 13:49 Oxygen Flow Rate (L/min) 94 Oxygen Delivery Method Room Air Weight: 85.8 kg Body Mass Index (BMI) 33.5 Sodium 137 mmol/L (136-145) 11/03/19 08:01 Potassium 3.9 mmol/L (3.5-5.1) 11/03/19 08:01 Chloride 104 mmol/L (98-107) 11/03/19 08:01 Carbon Dioxide 24.0 mmol/L (21.0-32.0) 11/03/19 08:01 Anion Gap 9 (5-15) 11/03/19 08:01 BUN 31 mg/dL (7-18) H 11/03/19 08:01 Creatinine 1.11 mg/dL (0.55-1.02) H 11/03/19 08:01 Est GFR (MDRD) Af Amer 61 mL/min (>60) 11/03/19 08:01 Est GFR (MDRD) Non-Af 51 mL/min (>60) L 11/03/19 08:01 BUN/Creatinine Ratio 27.9 RATIO (10-20) H 11/03/19 08:01 Glucose 109 mg/dL (74-106) H 11/03/19 08:01 Assessment/Plan: Psychotropic Medications: Unnecessary Medications: Bowel Regimen: - Provider Comments Provider responsibility: Provider responsible to enter orders to implement recommendations Provider Comments to Recommendations by Pharmacy: Agree
[2019-11-05 16:41] LABS: Bedside Glucose 124 mg/dL (70-110)
[2019-11-05] MEDS: Capsaicin 0.025% 1 APPLIC Tube TOPICAL (18:37)
[2019-11-05] MEDS: Atorvastatin Calcium 40 MG Tablet PO (21:01)
[2019-11-05] MEDS: traZODone 50 MG Tablet PO (21:02)
[2019-11-05 21:31] LABS: Bedside Glucose 155 mg/dL (70-110)
[2019-11-06 04:11] VITALS: BP 148/55; PULSE 73; RESP 16; TEMP 36.2; O2SAT 94
[2019-11-06] MEDS: Acetaminophen 500 MG Tablet 1000 MG PO ×3 (04:13→21:10)
[2019-11-06] MEDS: Enoxaparin 40 MG/0.4 ML Syringe SC (04:13)
[2019-11-06] MEDS: Triamterene 75MG/Hctz 50MG Tablet 1 TABLET PO (04:13)
[2019-11-06] MEDS: Nystatin Powder 15gm Bottle 1 APPLIC TOPICAL ×2 (04:16→17:08)
[2019-11-06] MEDS: Menthol/Lanolin/Calamine/Znox 113 GM Tube 1 APPLIC TOPICAL ×2 (04:16→17:09)
[2019-11-06 06:25] LABS: Bedside Glucose 105 mg/dL (70-110)
[2019-11-06] MEDS: metFORMIN (XR) 500 MG Tablet PO (08:38)
[2019-11-06] MEDS: traMADol 50 MG Tablet PO ×2 (08:43→16:46)
[2019-11-06 10:00] VITALS: PULSE 79; RESP 16; O2SAT 99
[2019-11-06 11:11] LABS: Bedside Glucose 138 mg/dL (70-110)
[2019-11-06 14:10] VITALS: BP 172/67; PULSE 78; RESP 16; TEMP 36.6; O2SAT 97
--- NOTE | 2019-11-06 14:23 | CASEMGMT ---
Social Work IDT met with patient and dtr via conference call for care plan meeting. Discussed patient's progress in therapy. Pt is ambulating with FWW at 80 ft SBA, SBA for transfers, sup. bed mobility, and will practice box steps this date. Pt is set up fro grooming, UE dress, LE dressing, mod I for toileting, and declined OT shower. Pt is out of room isolation 11/15. Explained Medicare benefit. Pt lived at home with with 4 steps to enter and assisted with IADLs. Dtr concerned about weakness and fall risk. Pt using 1 and 2 lbs weights for exercises and progressed very well. Pt requesting to DC. IDT and dtr agreeable to DC 11/08. Provided resources for Liferox[facility] and MOW. Referred to [facility] for PT/OT/SN. Offered private duty aides but dtr has friend to call if needed. Dtr to case picker after work. Plan: DC home with 11/08 with [facility] PT/OT/SN. No DME needs. Maria De Jesus Galvan, COURTNEY RECORD TESTER
[2019-11-06] MEDS: Capsaicin 0.025% 1 APPLIC Tube TOPICAL (14:36)
[2019-11-06 16:25] LABS: Bedside Glucose 115 mg/dL (70-110)
--- NOTE | 2019-11-06 21:00 | DCINST_ITS ---
- Discharge Diagnoses Current Active Problems: Current Active and Chronic Problems (Last Updated 10/31/19 @ 16:[address] Compa Jacinto MD) Debility (Acute) Fall (Acute) Bilateral knee pain (Acute) Osteoarthritis of knees, bilateral (Acute) Urinary tract infection (Acute) Diabetes mellitus (Chronic) Hypertension (Chronic) Hyperlipidemia (Chronic) Vitamin D deficiency (Chronic) Insomnia (Chronic) You will use the following diet at home:: No restrictions, Regular Your food should be the consistency of: Regular Your liquids should be the consistency of: Regular/Thin Discharge Activity: Return to Normal Activity, May Shower, Use Walker Weight Bearing Status: Weight bearing as tolerated Call your doctor if you observe: Fever of 101 or Higher, Inability to urinate, Inability to have a bowel movement, Shortness of breath, Chest pain, Uncontrolled pain Allergies/Adverse Reactions: Allergies Penicillins Allergy (Verified 11/02/19 14:42) unknown Sulfa (Sulfonamide Antibiotics) Allergy (Verified 11/02/19 14:42) deathly ill sulfamethoxazole [From Bactrim] Allergy (Verified 11/02/19 14:42) deathly ill trimethoprim [From Bactrim] Allergy (Verified 11/02/19 14:42) deathly ill lisinopril Adverse Reaction (Verified 11/02/19 14:42) cough Medications to take at Discharge Atorvastatin Calcium [Lipitor] 40 mg PO DAILY 10/31/19 Cholecalciferol (VIT D3) [Vitamin D3] 1,000 unit PO DAILY 10/31/19 Metformin HCl [Metformin HCl ER] 500 mg PO DAILY 10/31/19 Triamterene 75MG/Hctz 50MG [Maxzide] 1 tab PO DAILY 10/31/19 traZODone [Desyrel] 50 mg PO QHS 10/31/19 Acetaminophen [Tylenol] 1,000 mg PO Q8 tablet 11/06/19 Menthol/Lanolin/Calamine/Znox [Calmoseptine Ointment] 1 applic TOPICAL BID tube 11/06/19 Mineral Oil/Petrolatum,White [Eucerin] 1 applic TOPICAL BID PRN PRN jar 11/06/19 Nystatin Powder [Mycostatin Powder] 1 applic TOPICAL BID bottle 11/06/19 traMADol [Ultram] 50 mg PO Q6H PRN PRN 7 Days #28 tab 11/06/19 The following prescriptions were given: traMADol [Ultram] 50 mg PO Q6H PRN PRN 7 Days #28 tab PRN Reason: Pain Score 1-5/10 Prescription Printed Primary Care Physician: Yogesh Corbett Chi, MD [COURTESY STAFF PHYSICIAN] - Please follow up with your Primary Care Physician in: 1 week. Test Results: Test results from this visit will be discussed in further detail at your follow- up appointment, if applicable. Please Follow Up With: Dr. Rk Jacinto When: 1 week. Proposed Discharge Date: 11/09/19
--- NOTE | 2019-11-06 21:02 | PCM.DC.SUM ---
Discharge Date and Diagnosis - Problem List Patient Problems: Active and Suspected Problems (Last Updated 10/31/19 @ 16:[address] Compa Jacinto MD) Debility (Acute) Fall (Acute) Bilateral knee pain (Acute) Osteoarthritis of knees, bilateral (Acute) Urinary tract infection (Acute) Date of Admission: 11/02/19 Date of Discharge: 11/09/19 - Primary Discharge Diagnosis Acute Problems: Active Problems (Last Updated 10/31/19 @ 16:[address] Compa Jacinto MD) Debility (Acute) Fall (Acute) Bilateral knee pain (Acute) Osteoarthritis of knees, bilateral (Acute) Urinary tract infection (Acute) - Secondary Discharge Diagnosis Chronic Problems: Chronic Problems (Last Updated 10/31/19 @ 16:[address] Compa Jacinto MD) Diabetes mellitus (Chronic) Hypertension (Chronic) Hyperlipidemia (Chronic) Vitamin D deficiency (Chronic) Insomnia (Chronic) Hospital Course and Treatment Imaging Results: 11/02/19 15:00 Diet: Cardiac: Calorie-Controlled Food consistency:: Regular Liquid Consistency:: Regular/Thin Is pt able to select menu?: Yes How many daily calories?: 1500 calorie Labs (Last 48 Hours) 11/04/19 11/05/19 11/05/19 21:22 06:17 08:10 COVID-19 (FREDIS) Not Detected POC Glucose 165 H 105 11/05/19 11/05/19 11/05/19 10:54 16:18 21:24 COVID-19 (FREDIS) POC Glucose 194 H 124 H 155 H 11/06/19 11/06/19 11/06/19 06:12 11:03 16:11 COVID-19 (FREDIS) POC Glucose 105 138 H 115 H Operations: None Procedures: None Summary of Care Provided: The patient is a 79 year old Female with below past medical history hospitalized for fall, bilateral knee pain, complicated by urinary tract infection, admitted to TCU with debility, here for rehabilitation, strengthening, prior to discharge home with family. Discharge home with , [facility] PT/OT/SN, No DME needs. Patient Problems: Active and Suspected Problems (Last Updated 10/31/19 @ 16:[address] Compa Jacinto MD) Debility (Acute) Fall (Acute) Bilateral knee pain (Acute) Osteoarthritis of knees, bilateral (Acute) Urinary tract infection (Acute) - Physical Exam Vitals/I&O's: Vital Signs Temp Pulse Resp BP Pulse Ox 97.9 F 78 16 172/67 H 97 11/06/19 14:10 11/06/19 14:10 11/06/19 14:10 11/06/19 14:10 11/06/19 14:10 Oxygen Flow Rate (L/min) 94 Oxygen Delivery Method Room Air Weight: 83.461 kg Body Mass Index (BMI) 33.5 Intake and Output for Last 24 Hours 11/04/19 11/05/19 11/06/19 23:59 23:59 23:59 Intake Total 480 / 480 480 / 480 240 / 240 Balance 480 / 480 480 / 480 240 / 240 Laboratory Results 11/05/19 21:24: POC Glucose 155 H 11/06/19 06:12: POC Glucose 105 11/06/19 11:03: POC Glucose 138 H 11/06/19 16:11: POC Glucose 115 H Current Medications Acetaminophen (Tylenol) 1,000 mg PO Q8 [facility] Last Admin: 11/06/19 13:57 Dose: 1,000 mg Documented by: Atorvastatin Calcium (Lipitor) 40 mg PO QHS [facility] Last Admin: 11/05/19 21:01 Dose: 40 mg Documented by: Bisacodyl (Dulcolax) 10 mg RECTAL DAILY PRN PRN PRN Reason: Constipation Calamine/Phenol (Calmoseptine Ointment) 1 applic TOPICAL BID [facility]; Protocol Last Admin: 11/06/19 17:09 Dose: 1 applicatio Documented by: Capsaicin (Zostrix) 1 applic TOPICAL 4X/DAY PRN PRN; Protocol PRN Reason: Pain/Inflammation Last Admin: 11/06/19 14:36 Dose: 1 applicatio Documented by: Cholecalciferol (Vitamin D (25mcg)) 1,000 unit PO DAILY [facility] Last Admin: 11/06/19 04:15 Dose: 1,000 unit Documented by: Enoxaparin Sodium (Lovenox) 40 mg SC DAILY@0600 [facility] Last Admin: 11/06/19 04:13 Dose: 40 mg Documented by: Metformin HCl (Glucophage Xr) 500 mg PO DAILYCM [facility] Last Admin: 11/06/19 08:38 Dose: 500 mg Documented by: Multi-Ingredient Cream (Eucerin) 1 applic TOPICAL BID PRN PRN; Protocol PRN Reason: dry skin Nystatin (Mycostatin Powder) 1 applic TOPICAL BID [facility]; Protocol Last Admin: 11/06/19 17:08 Dose: 1 applic Documented by: Oxycodone HCl (Oxyir) 2.5 mg PO Q4H PRN PRN PRN Reason: Pain Score 6-10/10 Last Admin: 11/04/19 18:21 Dose: 2.5 mg Documented by: Polyethylene Glycol (Miralax) 17 gm PO DAILY [facility] Last Admin: 11/06/19 04:13 Dose: Not Given Documented by: Senna/Docusate Sodium (Senokot-S, Theresa-Colace) 1 tablet PO BID [facility] Last Admin: 11/06/19 17:35 Dose: Not Given Documented by: Sodium Chloride () 10 - 40 ml IV UD PRN PRN Reason: SALINE FLUSH Tramadol HCl (Ultram) 50 mg PO Q6H PRN PRN PRN Reason: Pain Score 1-5/10 Last Admin: 11/06/19 16:46 Dose: 50 mg Documented by: Trazodone HCl (Desyrel) 50 mg PO QHS [facility] Last Admin: 11/05/19 21:02 Dose: 50 mg Documented by: Triamterene/HCTZ (Maxzide) 1 tablet PO DAILY [facility] Last Admin: 11/06/19 04:13 Dose: 1 tablet Documented by: Tuberculin PPD (Tubersol, Aplisol, Ppd) 5 tu ID [id number] ONE Stop: 11/10/19 10:01 Discharge Diet: No Restrictions Discharge Activity: Return to Normal Activity, May Shower, Use Walker Weight Bearing Status: Weight bearing as tolerated Call your doctor if you observe: Fever of 101 or Higher, Inability to urinate, Inability to have a bowel movement, Shortness of breath, Chest pain, Uncontrolled pain Home Medications: Medications to take at Discharge Atorvastatin Calcium [Lipitor] 40 mg PO DAILY 10/31/19 Cholecalciferol (VIT D3) [Vitamin D3] 1,000 unit PO DAILY 10/31/19 Metformin HCl [Metformin HCl ER] 500 mg PO DAILY 10/31/19 Triamterene 75MG/Hctz 50MG [Maxzide] 1 tab PO DAILY 10/31/19 traZODone [Desyrel] 50 mg PO QHS 10/31/19 Acetaminophen [Tylenol] 1,000 mg PO Q8 tablet 11/06/19 Menthol/Lanolin/Calamine/Znox [Calmoseptine Ointment] 1 applic TOPICAL BID tube 11/06/19 Mineral Oil/Petrolatum,White [Eucerin] 1 applic TOPICAL BID PRN PRN jar 11/06/19 Nystatin Powder [Mycostatin Powder] 1 applic TOPICAL BID bottle 11/06/19 traMADol [Ultram] 50 mg PO Q6H PRN PRN 7 Days #28 tab 11/06/19 Following Prescriptions Were Given to Patient: traMADol [Ultram] 50 mg PO Q6H PRN PRN 7 Days #28 tab PRN Reason: Pain Score 1-5/10 Prescription Printed Primary Care Physician: Yogesh Corbett Chi, MD [COURTESY STAFF PHYSICIAN] - Please follow up with your Primary Care Physician in: 1 week. Please Follow Up With: Dr. Rk Jacinto When: 1 week. Please Follow Up With: Yogesh Corbett Chi, MD When: 1 week. Disposition: Home with Home Health Minutes spent on discharge:: 35 Patient Condition:: Stable Medical Necessity - Tobacco Use Smoking Status: Never smoker Tobacco Use: Non-smoker Meaningful Use Info Meaningful Use Diagnoses (Choose all that apply): None applicable
[2019-11-06] MEDS: traZODone 50 MG Tablet PO (21:10)
[2019-11-06] MEDS: Atorvastatin Calcium 40 MG Tablet PO (21:10)
[2019-11-06 21:26] LABS: Bedside Glucose 139 mg/dL (70-110)
[2019-11-07 05:40] VITALS: BP 184/72; PULSE 81; RESP 16; TEMP 36.4; O2SAT 97
[2019-11-07] MEDS: Enoxaparin 40 MG/0.4 ML Syringe SC (05:44)
[2019-11-07] MEDS: Triamterene 75MG/Hctz 50MG Tablet 1 TABLET PO (05:44)
[2019-11-07] MEDS: Acetaminophen 500 MG Tablet 1000 MG PO ×3 (05:44→20:36)
[2019-11-07] MEDS: Nystatin Powder 15gm Bottle 1 APPLIC TOPICAL ×2 (05:44→18:47)
[2019-11-07] MEDS: Menthol/Lanolin/Calamine/Znox 113 GM Tube 1 APPLIC TOPICAL ×2 (05:45→18:49)
[2019-11-07 06:20] LABS: Bedside Glucose 105 mg/dL (70-110)
[2019-11-07] MEDS: metFORMIN (XR) 500 MG Tablet PO (07:44)
[2019-11-07 11:06] LABS: Bedside Glucose 142 mg/dL (70-110)
[2019-11-07 13:30] VITALS: BP 111/60; PULSE 68; RESP 14; TEMP 36.2; O2SAT 98
[2019-11-07 16:45] LABS: Bedside Glucose 131 mg/dL (70-110)
[2019-11-07] MEDS: Atorvastatin Calcium 40 MG Tablet PO (20:36)
[2019-11-07] MEDS: traZODone 50 MG Tablet PO (20:36)
[2019-11-07 21:10] LABS: Bedside Glucose 151 mg/dL (70-110)
[2019-11-08 03:24] VITALS: BP 150/83; PULSE 93; RESP 16; TEMP 36.1; O2SAT 96
[2019-11-08] MEDS: Enoxaparin 40 MG/0.4 ML Syringe SC (06:02)
[2019-11-08] MEDS: Triamterene 75MG/Hctz 50MG Tablet 1 TABLET PO (06:02)
[2019-11-08] MEDS: Acetaminophen 500 MG Tablet 1000 MG PO ×3 (06:02→21:24)
[2019-11-08] MEDS: Nystatin Powder 15gm Bottle 1 APPLIC TOPICAL ×2 (06:04→17:15)
[2019-11-08] MEDS: Menthol/Lanolin/Calamine/Znox 113 GM Tube 1 APPLIC TOPICAL ×2 (06:06→17:15)
[2019-11-08 06:26] LABS: Bedside Glucose 105 mg/dL (70-110)
[2019-11-08] MEDS: metFORMIN (XR) 500 MG Tablet PO (08:00)
[2019-11-08 10:00] VITALS: PULSE 101; RESP 16; O2SAT 97
[2019-11-08 11:11] LABS: Bedside Glucose 104 mg/dL (70-110)
[2019-11-08 13:49] VITALS: BP 139/54; PULSE 82; RESP 18; TEMP 37.2; O2SAT 100
[2019-11-08 16:36] LABS: Bedside Glucose 173 mg/dL (70-110)
[2019-11-08 21:15] LABS: Bedside Glucose 159 mg/dL (70-110)
[2019-11-08] MEDS: traZODone 50 MG Tablet PO (21:24)
[2019-11-08] MEDS: Atorvastatin Calcium 40 MG Tablet PO (21:24)
[2019-11-09] MEDS: Acetaminophen 500 MG Tablet 1000 MG PO ×2 (06:08→13:00)
[2019-11-09] MEDS: Triamterene 75MG/Hctz 50MG Tablet 1 TABLET PO (06:08)
[2019-11-09] MEDS: Enoxaparin 40 MG/0.4 ML Syringe SC (06:08)
[2019-11-09] MEDS: Nystatin Powder 15gm Bottle 1 APPLIC TOPICAL (06:09)
[2019-11-09] MEDS: Menthol/Lanolin/Calamine/Znox 113 GM Tube 1 APPLIC TOPICAL (06:09)
[2019-11-09 06:14] VITALS: BP 149/72; PULSE 72; RESP 18; TEMP 36.5; O2SAT 94
[2019-11-09 07:01] LABS: Bedside Glucose 101 mg/dL (70-110)
[2019-11-09] MEDS: metFORMIN (XR) 500 MG Tablet PO (08:22)
[2019-11-09 11:05] LABS: Bedside Glucose 156 mg/dL (70-110)
[2019-11-09 13:48] VITALS: BP 110/66; PULSE 74; RESP 17; TEMP 36.8; O2SAT 97
--- NOTE | 2019-11-15 08:57 | MDS.RN ---
Information for the mds was obtained from review of the clinical record, interview of resident, staff, and direct observation of resident's care.
== END 2019-11-09 16:30 | disposition home health service (06) | DRG 690 ==
PROVIDERS: Admitting Provider Family Medicine Geriatric Medicine; Visit Provider Family Medicine Geriatric Medicine
DX: N39.0 Urinary tract infection, site not specified (principal); M17.0 Bilateral primary osteoarthritis of knee; E11.9 Type 2 diabetes mellitus without complications; E55.9 Vitamin D deficiency, unspecified; E78.5 Hyperlipidemia, unspecified; I10 Essential (primary) hypertension; Z91.81 History of falling; M19.90 Unspecified osteoarthritis, unspecified site
CPT/HCPCS: 36415; 80048; 82962; 85025; 87635; 94799; 97110; 97116; 97162; 97166; 97530; 97535; 97802; U0003

== ENCOUNTER → 2019-11-12 15:09 | Outpatient (CLI) | payer MEDICARE, SELFPAY ==
[2019-11-02 13:48] VITALS: BMI 33.5
[2019-11-12 16:04] LABS: Absolute Lymphocyte Count 2.81 X10^3/uL (0.83-4.51); Absolute Neutrophil Count 6.2 X10^3/uL (2.0-7.7); Basophil# 0.05 X10^3/uL; Basophil% 0.5 % (0-1); Eosinophil# 0.19 X10^3/uL; Eosinophils% 1.9 % (0-5); Hematocrit 40.1 % (37-47); Hemoglobin 12.5 g/dL (12.0-15.0); Lymphocyte # 2.81 X10^3/ul (4.0); Lymphocyte % 28.7 % (19-41); Mean Corp Hgb Conc 31.2 g/dL (32-36); Mean Corpuscular Hgb 28.2 pg (27.0-32.0); Mean Corpuscular Volume 90.3 fL (81-99); Mean Platelet Vol. 10.5 fl (6.2-12.0); Monocyte# 0.47 X10^3/uL; Monocyte% 4.8 % (0-10); NRBC Flagged by Analyzer 0 % (0-5); Neutrophil # 6.21 X10^3/uL (2.7-7.7); Neutrophil % 63.6 % (47-70); Platelet Count 370 K/mm3 (150-450); RBC Distribution Width CV 13.6 % (11.6-14.6); RBC Distribution Width SD 44.3 fl (35.1-43.9); Red Blood Count 4.44 M/mm3 (4.2-5.4); White Blood Count 9.8 K/mm3 (4.4-11.0)
[2019-11-12 16:29] LABS: Vitamin B12 1092 pg/mL (211-911); Vitamin D,25 Hydroxy 84.6 ng/mL
[2019-11-12 16:35] LABS: ALB/GLOB Ratio 0.7 RATIO (0.9-2.4); AST(SGOT) 13 U/L (15-37); Alanine Aminotransfer ALT/SGPT 26 U/L (13-56); Albumin, Serum 3.2 g/dL (3.2-5.0); Alkaline Phosphatase 61 U/L (45-117); Anion Gap 7 (5-15); BUN 21 mg/dL (7-18); Calcium,Total 9.7 mg/dL (8.5-10.1); Chloride 107 mmol/L (98-107); Creatinine, Serum 1.05 mg/dL (0.55-1.02); EST Glomerular Filtration Rate 54 mL/min (>60); Est Glom Filt Rate - Afr Amer 65 mL/min (>60); Globulin 4.5 g/dL (2.2-4.2); Glucose 106 mg/dL (74-106); Potassium 3.4 mmol/L (3.5-5.1); Protein, Total 7.7 g/dL (6.4-8.2); Sodium Level 140 mmol/L (136-145); Thyroid Stim Hormone (TSH) 0.65 uIU/mL (0.358-3.74)
[2019-11-14 16:08] LABS: Folate, RBC (Hct) Test 38.9 % (34.0-46.6)
[2019-11-14 20:36] LABS: Folates, RBC Test 933 ng/mL (>498)
[2019-11-15 11:06] LABS: Rapid Plasmin Reagin (RPR) NONREACTIVE (NONREACTIVE)
== END ==
PROVIDERS: Visit Provider Family Medicine Geriatric Medicine
DX: E53.8 Deficiency of other specified B group vitamins (principal); E55.9 Vitamin D deficiency, unspecified; G30.9 Alzheimer's disease, unspecified; R53.83 Other fatigue
CPT/HCPCS: 36415; 80053; 82306; 82607; 82747; 84443; 85014; 85025; 86592

== ENCOUNTER → 2019-11-24 10:51 | Outpatient (CLI) | payer MEDICARE, SELFPAY ==
[2019-11-02 13:48] VITALS: BMI 33.5
[2019-11-24 12:02] LABS: Anion Gap 6 (5-15); BUN 29 mg/dL (7-18); Calcium,Total 9.3 mg/dL (8.5-10.1); Chloride 107 mmol/L (98-107); Creatinine, Serum 1.21 mg/dL (0.55-1.02); EST Glomerular Filtration Rate 46 mL/min (>60); Est Glom Filt Rate - Afr Amer 55 mL/min (>60); Glucose 164 mg/dL (74-106); Potassium 3.5 mmol/L (3.5-5.1); Sodium Level 138 mmol/L (136-145)
== END ==
PROVIDERS: Referring Provider Family Medicine Geriatric Medicine; Visit Provider Family Medicine Geriatric Medicine
DX: E87.6 Hypokalemia (principal)
CPT/HCPCS: 36415; 80048

== ENCOUNTER → 2019-12-18 | Outpatient (CLI) | payer MEDICARE, SELFPAY ==
[2019-11-02 13:48] VITALS: BMI 33.5
--- NOTE | 2019-12-18 | LES_PTH ---
PATIENT: RADHA ELLIS I LOC: [facility] U#:[id number] AGE/SX: 79/F ROOM: RE12/18/[address]: Dr. Yogesh Corbett MD : [id number] BED: DIS: 12/18/2019 SPEC #: [id number] RECD: 12/18/19 13:22 STATUS: ZACH MEME #: [id number] ILEANA: 12/18/19 00:[address]: Yogesh Corbett Chi DEPT: SURGICAL PATHOLOGY RECD BY: Bill Roach Tissues: Skin of neck, NOS Procedures: Surgery Specimen Level IV HEADER OPERATION: Shave biopsy PRE-OP DIAGNOSIS: L81.9 TISSUE SUBMITTED: Neck MICROSCOPIC DIAGNOSIS Neck lesion, shave biopsy: Basal cell carcinoma with focal ulceration and associated inflammation. ANDREA:natali 12/19/19 COMMENT Case has been reviewed in consultation with Dr. Goldman who concurs with the above diagnosis. IDC:AM MICROSCOPIC DESCRIPTION Slides are reviewed. GROSS DESCRIPTION Received in fixative is one container labeled with the patient's name and designated neck. The specimen consists of a shave biopsy of springer-white skin measuring 0.6 x 0.4 x 0.1 cm. The specimen is inked and submitted entirely in one cassette. It will be bisected at the time of embedding. / SJ:rg 12/18/19 TC:0 CPT: 91034
== END | disposition home or self-care (01) ==
PROVIDERS: PCP Family Medicine Geriatric Medicine; Visit Provider Family Medicine Geriatric Medicine
DX: C44.41 Basal cell carcinoma of skin of scalp and neck (principal)
CPT/HCPCS: 88305

== ENCOUNTER → 2020-02-13 16:25 | Outpatient (CLI) | payer MEDICARE, SELFPAY ==
[2019-11-02 13:48] VITALS: BMI 33.5
[2020-02-13 17:58] LABS: Absolute Neutrophil Count 5.8 X10^3/uL (2.0-7.7); Basophil# 0.04 X10^3/uL; Basophil% 0.5 % (0-1); Eosinophil# 0.13 X10^3/uL; Eosinophils% 1.5 % (0-5); Hematocrit 41.7 % (37-47); Hemoglobin 13.2 g/dL (12.0-15.0); Lymphocyte % 24.4 % (19-41); Mean Corp Hgb Conc 31.7 g/dL (32-36); Mean Corpuscular Hgb 29.5 pg (27.0-32.0); Mean Corpuscular Volume 93.1 fL (81-99); Mean Platelet Vol. 10.4 fl (6.2-12.0); Monocyte# 0.52 X10^3/uL; NRBC Flagged by Analyzer 0 % (0-5); Neutrophil # 5.79 X10^3/uL (2.7-7.7); Neutrophil % 67.4 % (47-70); Platelet Count 281 K/mm3 (150-450); RBC Distribution Width CV 13.3 % (11.6-14.6); RBC Distribution Width SD 45.5 fl (35.1-43.9); Red Blood Count 4.48 M/mm3 (4.2-5.4); White Blood Count 8.6 K/mm3 (4.4-11.0)
[2020-02-13 18:39] LABS: ALB/GLOB Ratio 0.8 RATIO (0.9-2.4); AST(SGOT) 19 U/L (15-37); Alanine Aminotransfer ALT/SGPT 30 U/L (13-56); Albumin, Serum 3.3 g/dL (3.2-5.0); Alkaline Phosphatase 62 U/L (45-117); Anion Gap 7 (5-15); BUN 23 mg/dL (7-18); BUN/Creat Ratio 23.5 RATIO (10-20); Calcium,Total 9.8 mg/dL (8.5-10.1); Chloride 105 mmol/L (98-107); Creatinine, Serum 0.98 mg/dL (0.55-1.02); EST Glomerular Filtration Rate 59 mL/min (>60); Est Glom Filt Rate - Afr Amer 71 mL/min (>60); Globulin 4.3 g/dL (2.2-4.2); Glucose 114 mg/dL (74-106); Potassium 4.5 mmol/L (3.5-5.1); Protein, Total 7.6 g/dL (6.4-8.2); Sodium Level 138 mmol/L (136-145); Thyroid Stim Hormone (TSH) 0.97 uIU/mL (0.358-3.74)
[2020-02-13 19:05] LABS: Vitamin D,25 Hydroxy 36.6 ng/mL
== END ==
PROVIDERS: PCP Family Medicine Geriatric Medicine; Visit Provider Family Medicine Geriatric Medicine
DX: E11.65 Type 2 diabetes mellitus with hyperglycemia (principal); I10 Essential (primary) hypertension; E55.9 Vitamin D deficiency, unspecified
CPT/HCPCS: 36415; 80053; 82306; 84443; 85025

== ENCOUNTER → 2020-02-21 | Outpatient (CLI) | payer MEDICARE, SELFPAY ==
[2019-11-02 13:48] VITALS: BMI 33.5
== END | disposition home or self-care (01) ==
PROVIDERS: PCP Family Medicine Geriatric Medicine; Referring Provider Family Medicine Geriatric Medicine; Visit Provider Family Medicine Geriatric Medicine
DX: R06.89 Other abnormalities of breathing (principal)
CPT/HCPCS: 87633; 87635; C9803; U0003

== ENCOUNTER 2021-11-17 11:11 | Emergency (ER) | payer MEDICARE, SELFPAY ==
[2021-11-17 11:10] VITALS: BP 172/101; PULSE 75; RESP 12; TEMP 36.6; O2SAT 96; BMI 39.0
--- NOTE | 2021-11-17 11:39 | EKG12_ITS ---
Test Reason : ALT LOC Blood Pressure : / mmHG Vent. Rate : 073 BPM Atrial Rate : 073 BPM P-R Int : 140 ms QRS Dur : 082 ms QT Int : 412 ms P-R-T Axes : 071 -35 059 degrees QTc Int : 453 ms Normal sinus rhythm Left axis deviation Nonspecific ST abnormality Abnormal ECG Confirmed by NORMA OSBORN, STEVE ([id number]), slot editor KAREN BEST ([id number]) on 11/19/2021 10:03:29 AM Referred By: BLAIRE Confirmed By:STEVE GREEN MD
--- NOTE | 2021-11-17 11:41 | ED.RN ---
forest reports that pt ambulated to cot when picked up at [facility]. no unilateral weakness or deficit assessed. pt follows all commands but keeps eyes closed. daughter at bedside now
--- NOTE | 2021-11-17 11:42 | EDS_ITS ---
HPI History of Present Illness Chief Complaint: Alt LOC Narrative Narrative: History and physical is mildly limited secondary to patient mental status. According to her daughter, patient was seen last evening at 5 PM and partially ate some of her dinner. It was reported by the care home facility that she is altered and fatigued. Usually she is awake, alert, and talking. Daughter notes that patient is extremely tired and wants to close her eyes. Patient denies any fever or chills. No dysuria or hematuria. No pain. She presents because of the fatigue and malaise and decreased mental status. No recent fevers or cough reported. No nausea or vomiting. [facility] Medical History Arthritis Diabetes HTN (hypertension) HTN (hypertension) Hyperlipidemia Home Medications atorvastatin 40 mg tablet 40 mg PO DAILY cholesterol 10/31/19 [History Last Taken 11/02/19] cholecalciferol (vitamin D3) 25 mcg (1,000 unit) tablet 1,000 unit PO DAILY vitamin 10/31/19 [History Last Taken 11/02/19] metformin 500 mg tablet,extended release 24 hr 1,000 mg PO QPM DM 10/31/19 [History Last Taken 11/02/19] triamterene 75 mg-hydrochlorothiazide 50 mg tablet 1 tab PO DAILY diuretic/bp 10/31/19 [History Last Taken 11/02/19] menthol 0.44 %-zinc oxide 20.6 % topical ointment 1 applic topical BID 11/06/19 [Rx Last Taken Unknown] acetaminophen 500 mg tablet 650 mg PO Q8 11/17/21 [History Last Taken Unknown] amlodipine 5 mg tablet 5 mg PO DAILY 11/17/21 [History Last Taken Unknown] cephalexin 500 mg capsule 500 mg PO BID #14 caps 11/17/21 [Rx Last Taken Unknown] fluoxetine 40 mg capsule (Prozac) 80 mg PO QPM 11/17/21 [History Last Taken Unknown] hydroxyzine pamoate 25 mg capsule (Vistaril) 25 mg PO TID PRN Anxiety 11/17/21 [History Last Taken Unknown] memantine 10 mg tablet 10 mg PO BID 11/17/21 [History Last Taken Unknown] metoprolol tartrate 50 mg tablet 50 mg PO BID 11/17/21 [History Last Taken Unkn own] tramadol 50 mg tablet 25 mg PO DAILY 11/17/21 [History Last Taken Unknown] Allergy/AdvReac Type Severity Reaction Status Date / Time Penicillins Allergy unknown Verified 11/02/19 14:42 Sulfa (Sulfonamide Allergy deathly Verified 11/02/19 14:42 Antibiotics) ill sulfamethoxazole Allergy deathly Verified 11/02/19 14:42 [From Bactrim] ill trimethoprim [From Bactrim] Allergy deathly Verified 11/02/19 14:42 ill lisinopril AdvReac cough Verified 11/02/19 14:42 Social History Smoking Status: Never smoker ROS ROS ED ROS Narrative Constitutional: No fever, no chills. Reported fatigue and drowsiness by care home facility. HEENT: No sore throat. No neck pain. No loss of vision. No rhinorrhea. Cardiovascular: No chest pain. No palpitations. No pedal edema. Respiratory: No cough, no shortness of breath. Abdominal: No abdominal pain. No nausea. No vomiting. Genitourinary: No dysuria. No hematuria. Musculoskeletal: No myalgias. No arthralgias. Neurologic: No headaches. No dizziness. No lightheadedness. Decreased mental status according to daughter and care home facility. Skin: No rash. No change in color. Psychiatric: No depression. No anxiety. EXAM Physical Exam Narrative Exam Narrative: Afebrile. Vital signs noted. HEENT: Normocephalic. Atraumatic. PERRL, EOMI. Neck soft and supple. No point tenderness or step off. Cardiovascular: Regular rate and rhythm. No murmurs, rubs, or gallops appreciated. Respiratory: No tachypnea. Lungs clear to auscultation bilaterally. Gastrointestinal: Abdomen soft, nontender, with normoactive bowel sounds. No re bound or guarding. Neurological: Easily awakened, alert. Oriented to person and place and recognizes daughter. Nonfocal, nonlateralizing. Skin: No rash. Normal color. No pallor. Musculoskeletal: No pedal edema. Full range of motion extremities. Const Vital Signs: 11/17/21 11:10 11/17/21 13:00 11/17/21 14:26 Temperature 97.8 F Temperature Source Oral Pulse Rate 75 80 73 Respiratory Rate 12 25 H Blood Pressure 172/101 H 159/105 H 176/83 H Blood Pressure Mean 124 123 114 Pulse Ox 96 97 Oxygen Delivery Method Room Air Room Air MDM MDM MDM Narrative Medical decision making narrative: Comprehensive work-up was pursued. EKG interpreted by myself demonstrates normal sinus rhythm at 73 bpm without ectopy or acute ST changes. No STEMI. She will be bolused IV fluids. I will check a urinalysis and basic laboratory work along with a chest x-ray. Patient has slightly elevated white count of 11.1 which I think is nonspecific, normal hemoglobin of 14.1, platelet count normal at 345. Sodium slightly low at 134, BUN of 26 with a creatinine of 1.18. This may be mild dehydration. LFTs are grossly unremarkable except for ALT slightly elevated at 69 with an AST of 43. High-sensitivity troponin is 10. Chest x-ray interpreted by myself shows no evidence of pneumonia or pneumothorax. Urinalysis shows WBC count of 10-25 with 4+ bacteria but negative nitrites. This will be sent for culture. I will treat her as a UTI with Keflex as she has allergies to Bactrim. Although she has an unknown reaction to penicillin, she has tolerated Omnicef in the past which is also a cephalosporin. At this point in time, I feel she be discharged for continued treatment for her UTI. Upon repeat examination, she is easily awakened and is alert and respo nsive. Her daughter is at the bedside who is comfortable with sending her back to the care home facility. I do not feel that she meets any observation or admission criteria. Disposition is discharged in stable condition. Lab Data Attestation: I reviewed the patient's lab results. Labs: Laboratory Results - last 24 hr 11/17/21 11/17/21 11/17/21 12:00 12:00 12:00 WBC 11.1 H RBC 4.61 Hgb 14.1 Hct 43.2 MCV 93.7 MCH 30.6 MCHC 32.6 RDW Std Deviation 44.3 H RDW Coeff of Ahsan 12.8 Plt Count 345 MPV 9.8 Immature Gran % (Auto) 0.400 Neut % (Auto) 65.1 Lymph % (Auto) 24.7 [place] % (Auto) 8.6 Eos % (Auto) 0.8 Baso % (Auto) 0.4 Absolute Neuts (auto) 7.2 Absolute Lymphs (auto) 2.74 Nucleated RBC % 0 Sodium 134 L Potassium 3.8 Chloride 100 Carbon Dioxide 26.0 Anion Gap 8 BUN 26 H Creatinine 1.18 H Estim Creat Clear Calc 29.17 Est GFR (MDRD) Af Amer 57 L Est GFR (MDRD) Non-Af 47 L BUN/Creatinine Ratio 22.0 H Glucose 125 H Calcium 9.4 Total Bilirubin 0.70 AST 43 H ALT 69 H Alkaline Phosphatase 57 Troponin I High Sens 10 Total Protein 7.4 Albumin 3.1 L Globulin 4.3 H Albumin/Globulin Ratio 0.7 L Urine Color Yellow Urine Clarity Cloudy Urine pH 6.0 Ur Specific [place] 1.015 Urine Protein 30 H Urine Glucose (UA) Normal Urine Ketones Negative Urine Occult Blood 10 H Urine Nitrite Negative Urine Bilirubin Negative Urine Urobilinogen Normal Ur Leukocyte Esterase 100 H Urine RBC 0 SEEN Urine WBC 10-25 SEEN Ur Squamous Epith Cells 0-5 SEEN Urine Bacteria 4+ Hyaline Casts 5-10 SEEN Urine Mucus 0 SEEN Radiography Diagnostic Testing: Clinical Impression(s) from Imaging Studies Chest X-Ray 11/17/21 12:25 IMPRESSION: No radiographic evidence of acute cardiopulmonary disease. Electronically Signed: Tommy Black MD at 12:39 EDT , Discharge Plan Triage Chief Complaint: Alt LOC ED Provider: Forrest Guallpa Dx/Rx/DC Orders Clinical Impression: Urinary tract infection, Fatigue, Acute alteration in mental status Instructions: ED ALOC, ED Cystitis Female Adult Prescriptions: New cephalexin 500 mg capsule 500 mg PO BID Qty: 14 0RF No Action atorvastatin 40 mg tablet 40 mg PO DAILY triamterene-hydrochlorothiazid 1 TABLET tablet 1 tab PO DAILY metformin 500 MG tablet extended release 24 hr 1,000 mg PO QPM cholecalciferol (vitamin D3) 1,000 UNIT tablet 1,000 unit PO DAILY menthol-zinc oxide 1 APPLIC ointment 1 applic topical BID 0RF Protocol: *Topical Application Instructions APPLICATION INSTRUCTIONS: apply to coccyx and bilateral buttocks fluoxetine [Prozac] 40 mg Capsule 80 mg PO QPM amlodipine 5 mg Tablet 5 mg PO DAILY tramadol 50 mg Tablet 25 mg PO DAILY metoprolol tartrate 50 mg Tablet 50 mg PO BID hydroxyzine pamoate [Vistaril] 25 mg Capsule 25 mg PO TID PRN (Reason: Anxiety) memantine 10 mg Tablet 10 mg PO BID acetaminophen 500 MG tablet 650 mg PO Q8 Primary Care Provider: Yogesh Corbett Chi Referrals: Yogesh Corbett Chi, MD [Primary Care Provider] - 3-5 Days Disposition Disposition[facility] Discharge Location: [facility]
[2021-11-17] MEDS: 0.9% Normal Saline 1,000 ML 1000 ML IV (11:55)
[2021-11-17 12:07] LABS: Mucous, Urine 0 SEEN /hpf (<or=2+); Red Blood Cells-Urine 0 SEEN /hpf (0-5)
[2021-11-17 12:09] LABS: Absolute Lymphocyte Count 2.74 X10^3/uL (0.83-4.51); Absolute Neutrophil Count 7.2 X10^3/uL (2.0-7.7); Basophil# 0.04 X10^3/uL; Basophil% 0.4 % (0-1); Eosinophil# 0.09 X10^3/uL; Eosinophils% 0.8 % (0-5); Glucose, Dipstick Normal (Normal); Hematocrit 43.2 % (37-47); Hemoglobin 14.1 g/dL (12.0-15.0); Ketone-Dipstick Negative (Negative); Leukocyte Esterase-Dipstick 100 /ul (Negative); Lymphocyte # 2.74 X10^3/ul (0.83-4.51); Lymphocyte % 24.7 % (19-41); Mean Corp Hgb Conc 32.6 g/dL (32-36); Mean Corpuscular Hgb 30.6 pg (27.0-32.0); Mean Corpuscular Volume 93.7 fL (81-99); Mean Platelet Vol. 9.8 fl (6.2-12.0); Monocyte# 0.95 X10^3/uL; Monocyte% 8.6 % (0-10); NRBC Flagged by Analyzer 0 % (0-5); Neutrophil # 7.24 X10^3/uL (2.7-7.7); Neutrophil % 65.1 % (47-70); Nitrite-Dipstick Negative (Negative); Occult Blood-Urine 10 /ul (Negative); Platelet Count 345 K/mm3 (150-450); Protein-Dipstick 30 mg/dl (Negative); RBC Distribution Width CV 12.8 % (11.6-14.6); RBC Distribution Width SD 44.3 fl (35.1-43.9); Red Blood Count 4.61 M/mm3 (4.2-5.4); Specific Gravity, Urine 1.015 (1.002-1.030); Urine Bilirubin Dipstick Negative (Negative); Urine Urobilinogen Normal (Normal); White Blood Count 11.1 K/mm3 (4.4-11.0)
[2021-11-17 12:15] LABS: Color, Urine Yellow (Yellow); Urine Clarity Cloudy (Clear)
[2021-11-17 12:19] LABS: Bacteria 4+ /hpf (None Seen)
[2021-11-17 12:23] LABS: Hyaline Cast 5-10 SEEN /lpf (0-5); White Blood Cells 10-25 SEEN /hpf (0-5)
[2021-11-17 12:24] LABS: Squamous Epithelial Cells - UA 0-5 SEEN /hpf (5-10)
--- NOTE | 2021-11-17 12:25 | RAD_ITS ---
INDICATION: CAD EXAMINATION/TECHNIQUE: X-RAY - XR Chest 1 View COMPARISON: None. FINDINGS: LINES/DEVICES: None. LUNGS: Peribronchial cuffing, suggestion of calcified bilateral hilar lymph nodes. A 1.5 cm calcified granulomas visualized in the left lower lung field. No evidence of focal lung consolidation or infiltrate. No pulmonary edema or effusion. No pneumothorax. MEDIASTINUM AND CARDIOVASCULAR STRUCTURES: Cardiac silhouette not enlarged. Central airways and mediastinal contour are unremarkable. BONES AND SOFT TISSUES: Unremarkable. RAD/Chest 1 View (Portable) IMPRESSION: No radiographic evidence of acute cardiopulmonary disease. Electronically Signed: Tommy Black MD at 12:39 EDT ,
[2021-11-17 12:28] LABS: ALB/GLOB Ratio 0.7 RATIO (0.9-2.4); AST(SGOT) 43 U/L (15-37); Alanine Aminotransfer ALT/SGPT 69 U/L (13-56); Albumin, Serum 3.1 g/dL (3.2-5.0); Alkaline Phosphatase 57 U/L (45-117); Anion Gap 8 (5-15); BUN 26 mg/dL (7-18); Calcium,Total 9.4 mg/dL (8.5-10.1); Chloride 100 mmol/L (98-107); Creatinine, Serum 1.18 mg/dL (0.55-1.02); EST Glomerular Filtration Rate 47 mL/min (>60); Est Glom Filt Rate - Afr Amer 57 mL/min (>60); Estimated Creatinine Clearance 29.17 ml/min; Globulin 4.3 g/dL (2.2-4.2); Glucose 125 mg/dL (74-106); Potassium 3.8 mmol/L (3.5-5.1); Protein, Total 7.4 g/dL (6.4-8.2); Sodium Level 134 mmol/L (136-145); Troponin-I HS 10 pg/mL (3.0-54.0)
[2021-11-17 13:00] VITALS: BP 159/105; PULSE 80; RESP 25; O2SAT 97
[2021-11-17 14:26] VITALS: BP 176/83; PULSE 73
[2021-11-17] MEDS: Cephalexin 250 MG Capsule 500 MG PO (15:10)
[2021-11-17 15:11] VITALS: BP 169/74; PULSE 83; RESP 18; O2SAT 96
--- NOTE | 2021-11-17 15:17 | NURSING ---
report called to nikky ballesteros to nurse with no questions. first dose of atb given. pt dressed and [facility] transport set up. daughter donald called and aware.
--- NOTE | 2021-11-17 15:18 | ED.RN ---
pt awake and alert. sat forward and lifted hips in assisting with dressing.
--- NOTE | 2021-11-17 15:19 | NURSING ---
CALLED [facility], ETA IS [address]
== END 2021-11-17 18:10 | disposition skilled nursing facility (03) ==
PROVIDERS: Emergency Provider Emergency Medicine; PCP Family Medicine Geriatric Medicine; Visit Provider Emergency Medicine
DX: N39.0 Urinary tract infection, site not specified (principal); E86.0 Dehydration; R41.82 Altered mental status, unspecified; I10 Essential (primary) hypertension; E78.5 Hyperlipidemia, unspecified; Z79.84 Long term (current) use of oral hypoglycemic drugs; Z79.899 Other long term (current) drug therapy
CPT/HCPCS: 71045; 80053; 81001; 84484; 85025; 87086; 93005; 96360; 96361; 99285; J7030; A4216